=== PATIENT | female | born 1985 | race Caucasian/White ===

== ENCOUNTER → 2016-11-15 | Outpatient (CLI) | payer OTHER ==
[~2016-11-15] MED LIST: PRENTAB26 PO; SERT25TA PO
== END | disposition home or self-care (01) ==
LOC: C.PAPS 15:26
PROVIDERS: ATTEND Obstetrics & Gynecology
DX: Z34.81 Encounter for supervision of other normal pregnancy, first trimester (principal)

== ENCOUNTER → 2016-12-20 | Outpatient (CLI) | payer OTHER ==
[2016-12-20 12:26] LABS: BASO % 0.2 %; BASO ABS # 0.02 K/uL (0-0.2); COMPLETE YES; EOS % 0.4 %; HEMATOCRIT 37.3 % (37-47); IG% 0.8 %; LYMPH % 13.5 %; MEAN CELL VOLUME 90.1 fL (80-100); MEAN CORPUSCULAR HEMOGLOBIN 30.9 pg (25-34); MEAN CORPUSCULAR HGB CONC 34.3 g/dl (32-36); MEAN PLATELET VOLUME 10.1 fL (7.4-10.4); MONO % 5.2 %; NEUT % 79.9 %; PLATELET COUNT 193 K/uL (130-400); RED BLOOD COUNT 4.14 M/uL (4.2-5.4); WHITE BLOOD COUNT 11.15 K/uL (4.8-10.8)
[2016-12-20 13:11] LABS: GTGD 50 Grams
== END | disposition home or self-care (01) ==
LOC: C.LAB 09:19
PROVIDERS: ATTEND Obstetrics & Gynecology
DX: Z34.83 Encounter for supervision of other normal pregnancy, third trimester (principal)

== ENCOUNTER → 2017-01-09 | Outpatient (CLI) | payer OTHER | END | disposition home or self-care (01) | LOC: C.LAB 08:11 | PROVIDERS: ATTEND Obstetrics & Gynecology | DX: Z34.93 Encounter for supervision of normal pregnancy, unspecified, third trimester (principal) ==

== ENCOUNTER → 2017-01-26 | Outpatient (CLI) | payer OTHER | END | disposition home or self-care (01) | LOC: C.LABSPEC 17:19 | PROVIDERS: ATTEND Obstetrics & Gynecology | DX: Z34.83 Encounter for supervision of other normal pregnancy, third trimester (principal) ==

== ENCOUNTER 2017-02-22 08:26 | Inpatient (IN) | payer OTHER ==
[2017-02-13 11:29] VITALS: BMI 32.0
--- NOTE | 2017-02-13 11:53 | PAT Medication Instructions ---
Service Date Feb 13, 2017. Current Home Medication List Multivit/Min/Iron/Fol Ac/Pren ( Vitamin), 1 TAB PO QAM Sertraline (Zoloft), 1 TAB PO DAILY PRN for Anxiety/Agitation Medication Instructions For Your Scheduled Surgery - Hold the following medications the morning of surgery with a sip of water: Multivit/Min/Iron/Fol Ac/Pren ( Vitamin), 1 TAB PO QAM - Take the following medications the morning of surgery with a sip of water: Sertraline (Zoloft), 1 TAB PO DAILY PRN for Anxiety/Agitation (if needed) - Take the following medications as scheduled the night before surgery: Sertraline (Zoloft), 1 TAB PO DAILY PRN for Anxiety/Agitation If you have any questions please call us at [phone] or [phone] or [phone]
[2017-02-13 12:21] LABS: BASO % 0.1 %; BASO ABS # 0.01 K/uL (0-0.2); COMPLETE YES; EOS % 0.6 %; HEMATOCRIT 37.3 % (37-47); IG% 0.6 %; LYMPH % 16.4 %; LYMPH ABS # 1.45 K/uL (1.2-3.4); MEAN CELL VOLUME 89.9 fL (80-100); MEAN CORPUSCULAR HEMOGLOBIN 28.7 pg (25-34); MEAN CORPUSCULAR HGB CONC 31.9 g/dl (32-36); MEAN PLATELET VOLUME 10.6 fL (7.4-10.4); MONO % 7.3 %; PLATELET COUNT 182 K/uL (130-400); RED BLOOD COUNT 4.15 M/uL (4.2-5.4); WHITE BLOOD COUNT 8.85 K/uL (4.8-10.8)
[2017-02-13 12:29] LABS: INR 0.9 (0.9-1.1)
[2017-02-13 13:36] LABS: BUN/CREATININE RATIO 9.1 (10-20); CALCIUM 8.5 mg/dl (8.5-10.1); CREATININE 0.78 mg/dl (0.60-1.20); POTASSIUM 3.5 mmol/L (3.5-5.1)
--- NOTE | 2017-02-17 13:42 | HISTORY & PHYSICAL EXAMINATION ---
DATE OF ADMISSION: 02/22/2017 CHIEF COMPLAINT: Intrauterine at term, previous , macrosomia. HISTORY OF PRESENT ILLNESS: The patient is a 31-year-old 2, para 1, general health is good. She has a history of macrosomia with her first child. First child was born by in 2012, 9 pounds 12 ounce girl. The patient presently requests repeat section. Clinically, the patient has an estimated weight well over 8 pounds and probably close to 10. Her first ultrasound was done late in her course and that gave her an EDC of 02/21/2017. However, she had a definitive last menstrual period of 05/24/2016 which gave her an EDC of 02/28/2017. We are presently using the 02/28/2017 due date due to the history of macrosomia. She will be admitted for repeat low segment section. PAST MEDICAL HISTORY: She is a 2-year-old girl in good health. ALLERGIES: SHE HAS NO KNOWN DRUG ALLERGIES. PAST SURGICAL HISTORY: She had a primary in 2012, she had wisdom teeth removed. MEDICAL HISTORY: No history of rheumatic fever, heart disease, heart murmur, diabetes, tuberculosis. SOCIAL HISTORY: No smoking. No excessive alcohol intake. Works as a housewife. FAMILY HISTORY: Mom is 69 in good health. Father 74, has myelodysplastic dysplasia and he has been treated for Guillain-[place] syndrome. She has 1 brother and 1 sister in good health. REVIEW OF SYSTEMS: HEAD: No symptoms of frequent or severe headaches. EYES: No symptoms of blurred vision or double vision. PHYSICAL EXAMINATION: GENERAL: Well-developed, well-nourished 31-year-old white female, alert, oriented x3 and cooperative in no acute distress, appears stated age. EYES: Conjunctivae are pink, sclerae white, no evidence of jaundice. EARS: Had normal light reflex bilaterally. NOSE: Had normal mucosa. Septum is midline. There were no polyps. THROAT: No erythema or evidence of infection. Teeth are in good state of repair. HEAD: Normocephalic, normal distribution of hair. NECK: Supple. Trachea midline. Thyroid is not enlarged. No adenopathy appreciated. ABDOMEN: Soft and nontender. There was an estimated weight of close to 10 pounds. Well-healed Pfannenstiel incision. PELVIC EXAMINATION: Revealed a vertex presentation, floating. Cervix to be mid position, firm and closed. MUSCULOSKELETAL EXAMINATION: Revealed no calf tenderness. IMPRESSIONS OF THIS CASE: Status post previous for macrosomia, status post removal of wisdom teeth, intrauterine at 39+ weeks' gestation, estimated weight of close to 10 pounds.
[2017-02-22] VITALS (8 sets, daily range): BP systolic 122–134; BP diastolic 81; PULSE 54–59; TEMP 36.7–36.8; O2SAT 98–100; Ht 168.9 cm; Wt 86.7 kg
[~2017-02-22] VITALS: Ht 168.9 cm; Wt 86.7 kg
[~2017-02-22 08:26] MED LIST changes: +CEFOXITIN IV 2,000 MG in DEXTROSE 5% 50ML 50 ML IV SCH; +CEFOXITIN IV 2000 MG in DEXTROSE 5% 50ML IV SCH; +CITRIC ACID/SODIUM CITRATE 15 ML UDC PO SCH; +LACTATED RINGER'S 1000ML 1,000 ML IV SCH
[2017-02-22 09:43] LABS: HEMATOCRIT 39.9 % (37-47); MEAN CELL VOLUME 91.1 fL (80-100); MEAN CORPUSCULAR HEMOGLOBIN 29.7 pg (25-34); MEAN PLATELET VOLUME 11.2 fL (7.4-10.4); PLATELET COUNT 192 K/uL (130-400); RED BLOOD COUNT 4.38 M/uL (4.2-5.4)
[2017-02-22 10:12] LABS: MEAN CORPUSCULAR HGB CONC 32.6 g/dl (32-36)
[2017-02-22] MEDS ORDERED: CITRIC ACID/SODIUM CITRATE 15 ML UDC PO ONE (12:00)
[2017-02-22] MEDS ORDERED: MoRPHine SULFATE PF 1 MG/ML 10 ML AMP/VIAL ONE (12:24)
[2017-02-22] MEDS ORDERED: FENTANYL CITRATE INJ 50 MCG/1 ML 2 ML VIAL ONE (12:25)
[2017-02-22] MEDS ORDERED: OXYTOCIN INJ 10 UNITS/ML VIAL ONE ×2 (12:25→13:18)
[2017-02-22] MEDS ORDERED: PHENYLEPHRINE HCL INJ 10 MG/ML VIAL ONE (12:43)
[2017-02-22] MEDS ORDERED: HYDROCORTISONE ACETATE 25 MG SUPP PR PRN (13:45)
[2017-02-22] MEDS ORDERED: MEPERIDINE HCL 50 MG/ML CARP IV PRN ×2 (13:45)
[2017-02-22] MEDS ORDERED: KETOROLAC TROMETHAMINE 30 MG/ML VIAL IV. PRN (13:45)
[2017-02-22] MEDS ORDERED: ZOLPIDEM TARTRATE 5 MG TAB PO PRN (13:45)
[2017-02-22] MEDS ORDERED: SENNA 8.6 MG TAB PO PRN (13:45)
[2017-02-22] MEDS ORDERED: MAGNESIUM HYDROXIDE SUSP 30 ML UDC PO PRN (13:45)
[2017-02-22] MEDS ORDERED: NALOXONE HCL 0.4 MG/1 ML VIAL/CARP IV PRN (13:45)
[2017-02-22] MEDS ORDERED: LANOLIN OINT EXT PRN ×2 (13:45)
[2017-02-22] MEDS ORDERED: OXYCODONE/ACETAMINOPHEN 5-325 TAB PO PRN (13:45)
[2017-02-22] MEDS ORDERED: DiphenhydrAMINE HCL 50 MG/ML VIAL IV PRN (13:45)
[2017-02-22] MEDS ORDERED: NALOXONE HCL INJ 0.08 MG in SYRINGE 1.8 ML IV PRN (13:45)
[2017-02-22] MEDS ORDERED: DIPHTHERIA/TETANUS/PERTUSSIS 0.5 ML SYR/VIAL IM. ONE (13:45)
[2017-02-22] MEDS ORDERED: SUPERCREAM 0.870 % 15GM JAR EXT PRN (13:45)
[2017-02-22] MEDS ORDERED: EpHEDrine SULFATE INJ 50 MG/ML AMP IV PRN (13:45)
[2017-02-22] MEDS ORDERED: MoRPHine SULFATE PF 1 MG/ML 10 ML AMP/VIAL EPI PRN (13:45)
[2017-02-22] MEDS ORDERED: BENZOCAINE 20% AER SPR 82.5 GM CAN EXT PRN (13:45)
[2017-02-22] MEDS ORDERED: NALBUPHINE HCL INJ 10 MG/ML AMP IV PRN (13:45)
[2017-02-22] MEDS ORDERED: LACTATED RINGER'S 1000ML 500 ML IV PRN (13:45)
[2017-02-22] MEDS ORDERED: MEPERIDINE HCL 25 MG/ML CARP IV PRN (13:45)
[2017-02-22] MEDS ORDERED: MoRPHine SULFATE 2 MG/ML CARP IV PRN (13:45)
[2017-02-22] MEDS ORDERED: ONDANSETRON INJ 2 MG/ML 2 ML VIAL IV PRN ×2 (13:45)
[2017-02-22] MEDS ORDERED: NALOXONE HCL INJ 1 MG in SODIUM CHLORIDE 0.9% 1000ML 1,000 ML IV PRN (13:45)
[2017-02-22] MEDS ORDERED: SODIUM CHLORIDE 0.9% 1000ML 1,000 ML IV PRN (13:45)
[2017-02-22] MEDS ORDERED: NO NARCOTICS OR SEDATIVES SCH (13:45)
--- NOTE | 2017-02-22 14:04 | OPERATIVE REPORT ---
DATE OF OPERATION: 02/22/2017 PROCEDURE: Repeat low segment section. INDICATIONS FOR SURGERY: Intrauterine at term and previous section. PREOPERATIVE DIAGNOSES: Intrauterine at term and macrosomia. POSTOPERATIVE DIAGNOSES: Same, delivered a large male infant. SURGEON: Dr. Ferreira. TAR LEVELER: Dr. Salazar. ESTIMATED BLOOD LOSS: 600 mL. ANESTHESIA: Spinal. OPERATIVE FINDINGS AND PROCEDURE: The patient was brought to the OR table, correctly identified by armband and conversation. Compression stockings were applied. Suprapubic area had been clipped. Morelos catheter had been inserted aseptically into the bladder and connected to gravity drainage. Spinal anesthesia was administered. The patient was positioned on the operating room table. Lower abdomen was painted with an alcohol based sterilizing solution and draped in the usual sterile fashion. Level of the anesthesia was tested and found to be adequate. Pfannenstiel incision was made through a previous scar. Incision was carried down to the anterior fascia by sharp dissection. Hemostasis was secured by electrocauterization. Fascia was incised transversely, from underlying muscle by blunt and sharp dissection. Recti muscles were in the midline exposing peritoneum, which was carefully raised and entered. Position of the head was palpated. An incision was made above the vesicouterine fold about the middle of the head. The bladder was undermined bluntly and pushed out of the operative field. Lower uterine segment was then scored with a knife and entered with a knife. Clear amniotic fluid was seen at this time. The incision was extended laterally with the two fingers. Then, vectis retractor was applied to the head and with fundal pressure, the head was delivered without difficulty. was suctioned through the mouth and the nose. There was a nuchal cord x1, which was reduced over the head. The body was then delivered and the was attended to by the senior ruby developer, Dr. Felipe, who was scrubbed and present at time of delivery. After cutting the cord, cord blood was taken. Placenta was removed manually. Uterus, tubes, and ovaries were brought out through the incision. The myometrial defect was then approximated in layers. The muscular layer was approximated with continuous chromic gut suture. Fascial layer was approximated with a horizontal suture of heavy Vicryl and then we went back over the fascial layer with a Vicryl suture in a continuous fashion to complete the approximation. Following this, hemostasis was excellent. Good approximation was palpated. The peritoneal edges were now restored with a continuous 3-0 chromic. This restored the integrity of the vesicouterine fold. The pelvis was cleansed of all blood clots and debris. Uterus, tubes, and ovaries were reinserted into the abdominal cavity. Careful attention was taken to approximate the anterior abdominal wall. Peritoneum was closed with continuous chromic gut suture. Recti muscles were approximated with interrupted [id number] suture. The fascia was closed with continuous interlocking suture of Vicryl on each side and tied in the midline. SubQ was approximated with continuous plain and skin edges were approximated with staple clips. Following this, the patient tolerated the procedure well and left the OR in good condition. I attest to the content of the Intraoperative Record and any orders documented therein. Any exceptions are noted below. MTDD
[2017-02-22] MEDS: OXYTOCIN INJ 20 UNITS in LACTATED RINGER'S 1000ML 1,000 ML IV SCH ×2 (14:22→23:18)
[2017-02-22 16:38] LABS: HEMATOCRIT 41.8 % (37-47)
--- NOTE | 2017-02-22 16:45 | Anesthesiology Progress Note ---
Anesthesia Post Op Note Date & Time Feb 22, 2017 at 16:38 Notes Mental Status: alert / awake / arousable, participated in evaluation Pt Amnestic to Procedure: Yes Nausea / Vomiting: adequately controlled Pain: adequately controlled Airway Patency, RR, SpO2: stable & adequate BP & HR: stable & adequate, see Notes Hydration State: stable & adequate Neuraxial Anesthesia: was administered, sensory block is resolving Anesthetic Complications: no major complications apparent The patient did well during the C section. She was noted to become tachycardic HR 110s near the end of the procedure but was otherwise comfortable and stable. In recovery she was noted by the nurse to have rapid HR shifts from 55 to 110s on the rhythm strip. A 12 lead EKG was ordered and during the EKG reading she was noted to flip from sinus bradycardia rate 55 to an accelerated junctional rhythm rate 114. Her other vital signs were stable and she was asymptomatic with no palpitations, SOB, or chest pain. I spoke with Dr. Ferreira and reviewed the EKGs with Dr. Greene. [facility] and will check labs as well as monitor the patient on telemetry overnight.
[2017-02-22] MEDS: SIMETHICONE 80 MG CHEW PO SCH ×2 (17:00→21:07)
[2017-02-22 17:04] LABS: BUN/CREATININE RATIO 12.1 (10-20); CALCIUM 8.6 mg/dl (8.5-10.1); CREATININE 0.76 mg/dl (0.60-1.20); MAGNESIUM 1.8 mg/dl (1.8-2.4)
[2017-02-22] MEDS: KETOROLAC TROMETHAMINE 30 MG/ML VIAL IV. PRN (17:26)
[2017-02-22] MEDS: IBUPROFEN 600 MG TAB PO PRN (19:46)
--- NOTE | 2017-02-22 20:48 | Progress Note ---
Progress Note Date of Service Feb 22, 2017. Progress Note Patient was seen and evaluated with ROLANDO Ash. We were consulted on this patient for evaluation for arrhythmias. Patient is status post . Did well during the C section. She was noted to become tachycardic HR 110s near the end of the procedure but was otherwise comfortable and stable per anesthesia note. In recovery she was noted by the nurse to have rapid HR shifts from 55 to 110s on the rhythm strip. A 12 lead EKG was ordered and during the EKG reading she was noted to flip from sinus bradycardia rate 55 to an accelerated junctional rhythm rate 114. Vitals were stable and she was asymptomatic. We were consulted for further evaluation of her bradycardia. EXAM: Gen- AAOX3, no distress Neck- No JVD Lungs- AEBE, no wheezing, rhonchi Heart- Ext- no edema LABS- reviewed, cbc, bmp, mg ASSESSMENT AND PLAN: TACHYCARDIA/BRADYCARDIA : Noted during c section- HR went up to 110s, tachycardia to 55, bradycardia. EKG was ordered- read as accelerated junctional rhythm and thus we were consulted. Asymptomatic, other vitals stable. -No complications during surgery and doing well post operatively. No prior cardiac history. -EKG was repeated- HR of 130s- SVTs ? . Reviewed Monitor - seems like tachycardia , sinus but heart rate does fluctuate from low to high -Will monitor on telemetry overnight -Cardiology consulted S/P C SECTION -Doing well -Stable. Pain under control -Mx per primary team DISPOSITION Overnight telemonitoring and than okay to transfer to construction operations manager floor if doing well
[2017-02-22] MEDS: DOCUSATE SODIUM 100 MG CAP PO SCH (21:07)
--- NOTE | 2017-02-22 21:57 | Medical Consult ---
Consultation Date of Consultation: Feb 22, 2017. Attending Physician: Shine Ferreira M.D. Reason for Consultation: tachycardia History of Present Illness This is a 31 y/o female without significant PMH who presented today for planned today. On admission today her HR was 66 and BP was 134/76. While in the OR, her heart rate was intermittently tachycardic on the monitor. A healthy baby boy was delivered by . EBL was 600 mL. After the procedure her heart rate was 110 and BP was 120s/60s. In dough catcher noted HR fluctuating from 50's to 110's. EKG at 15:23 showed sinus bradycardia rate 55. EKG at 15:25 showed possible accelerated junctional rhythm, rate 114, with prolonged QT (qtc= 532). Currently HR is running 110s-120s and BP is 143/85. Patient denies any lightheadedness, palpitations, chest pain, SOB, abdominal pain (spinal still wearing off), N/V. Patient denies history of cardiac disorder including arrhythmia. No HTN, DM, lung disease. Her sister at bedside reports hx of heart murmur and arrhythmia/ palpitations 15y ago and details are unclear. Denies Fhx of CAD or sudden cardiac . Past Medical/Surgical History Medical Problems: (1) No significant past medical history Status: Chronic Surgical Problems: (1) H/O section Status: Chronic (2) H/O wisdom tooth extraction Status: Chronic Family History FHx: arrhythmia SISTER Heart murmur SISTER Social History Smoking Status: Never Smoker Alcohol Use: none Marital Status: Housing Status: lives with significant other Allergies Coded Allergies: No Known Allergies (Unverified , 02/22/17) Home Medications Active Reported Zoloft (Sertraline HCl) 25 Mg Tab 1 Tab PO DAILY PRN 30 Days Vitamin (Prenat Multivit/[place]/Iron/Folic Ac) Tab 1 Tab PO QAM Current Inpatient Medications Current Inpatient Medications Medications (Trade) Dose Ordered Sig/Shira Route Start Time Stop Time Status Last Admin Dose Admin Cefoxitin Sodium 2000 mg/Dextrose 70 ml @ 100 mls/hr PREOP IV 02/22/17 06:00 02/22/17 18:00 02/22/17 12:28 100 MLS/HR Oxytocin 20 units/ Lactated Ringer's 1,002 ml @ 125 mls/hr Q8H1M IV 02/22/17 14:00 02/23/17 14:02 02/22/17 14:22 125 MLS/HR Ketorolac Tromethamine (Toradol Inj) 30 mg Q6H PRN IV. 02/22/17 13:45 02/27/17 13:44 Future hold Meperidine HCl (Demerol Inj) 50 mg Q4H PRN IV 02/22/17 13:45 03/08/17 13:44 Future hold Meperidine HCl (Demerol Inj) 75 mg Q4H PRN IV 02/22/17 13:45 03/08/17 13:44 Future hold Oxycodone/ Acetaminophen (Percocet 5-325mg Tab) 1 tab Q4H PRN PO 02/22/17 13:45 03/08/17 13:44 Future hold Oxycodone/ Acetaminophen (Percocet 5-325mg Tab) 2 tab Q4H PRN PO 02/22/17 13:45 03/08/17 13:44 Future hold Ibuprofen (Motrin Tab) 600 mg Q4H PRN PO 02/22/17 13:45 03/24/17 13:44 Ondansetron HCl (Zofran Inj) 4 mg Q4H PRN IV 02/22/17 13:45 03/24/17 13:44 Future hold Prenat Multivit/ Moderate Needs Teacher/Iron/Folic Ac ( Vitamin Tab) 1 tab DAILY PO 02/23/17 08:00 03/25/17 07:59 Bisacodyl (Dulcolax Tab) 5 mg HS ONCE PO 02/23/17 22:00 02/23/17 22:01 Bisacodyl (Dulcolax Supp) 10 mg PRN PRN RI 02/24/17 13:45 03/26/17 13:44 Docusate Sodium (coLACE CAP) 100 mg BID PO 02/22/17 20:00 03/24/17 19:59 Magnesium Hydroxide (Milk Of Magnesia Susp) 30 ml HS PRN PO 02/22/17 13:45 03/24/17 13:44 Cocaine HCl (Supercream 0.870% Cr) BID PRN EXT 02/22/17 13:45 03/08/17 13:44 Lanolin (Lanolin Oint) PRN PRN EXT 02/22/17 13:45 03/24/17 13:44 Hydrocortisone Acetate (Anusol Hc Supp) 25 mg BID PRN RI 02/22/17 13:45 03/24/17 13:44 Benzocaine (Dermoplast Aero Spr) 1 appln PRN PRN EXT 02/22/17 13:45 03/24/17 13:44 Zolpidem Tartrate (Ambien Tab) 5 mg HSZ PRN PO 02/22/17 13:45 03/24/17 13:44 Future hold Simethicone (Mylicon Chew Tab) 80 mg QID PO 02/22/17 17:00 03/24/17 16:59 Diphenhydramine HCl (Benadryl Cap) 25 mg QID PRN PO 02/23/17 06:30 03/25/17 06:29 Diphenhydramine HCl (Benadryl Inj) 25 mg QID PRN IV 02/23/17 06:30 03/25/17 06:29 Senna (Senokot Tab) 17.2 mg HS PRN PO 02/22/17 13:45 03/24/17 13:44 Naloxone HCl (Narcan Inj) 0.1 mg UD PRN IV 02/22/17 13:45 02/23/17 06:30 Diphenhydramine HCl (Benadryl Inj) 25 mg Q6H PRN IV 02/22/17 13:45 02/23/17 06:30 Nalbuphine HCl (Nubain Inj) 5 mg Q10M PRN IV 02/22/17 13:45 02/23/17 06:30 Naloxone HCl 1 mg/ Sodium Chloride 1,002.5 ml @ 50 mls/hr Q20H3M PRN IV 02/22/17 13:45 02/23/17 06:30 Ondansetron HCl (Zofran Inj) 4 mg Q6H PRN IV 02/22/17 13:45 02/23/17 06:30 Ketorolac Tromethamine (Toradol Inj) 30 mg Q6H PRN IV. 02/22/17 13:45 02/23/17 06:30 Meperidine HCl (Demerol Inj) 25 mg Q15M PRN IV 02/22/17 13:45 02/23/17 06:30 Miscellaneous Information (Dc Intraspinal Morphine) 1 ea TODAY@0630 N/A 02/23/17 06:30 02/23/17 06:31 Miscellaneous Information (No Narcotics Or Sedatives) 1 ea UD N/A 02/22/17 13:45 02/23/17 06:30 Naloxone HCl 0.08 mg/Syringe 2 ml @ 1 mls/min Q2M PRN IV 02/22/17 13:45 02/23/17 06:30 Morphine Sulfate (MoRPHine SULFATE INJ) 2 mg Q6H PRN IV 02/22/17 13:45 02/23/17 06:30 Lactated Ringer's 500 ml @ 999 mls/hr Q31M PRN IV 02/22/17 13:45 02/23/17 13:44 Ephedrine Sulfate (EpHEDrine SULFATE INJ) 10 mg Q5M PRN IV 02/22/17 13:45 02/23/17 06:30 Morphine Sulfate (Duramorph Pf Inj) TODAY PRN EPI 02/22/17 13:45 02/23/17 06:30 Sodium Chloride 1,000 ml @ 15 mls/hr Q24H PRN IV 02/22/17 13:45 02/23/17 06:30 Review of Systems Ten systems reviewed and negative except as noted in HPI. Physical Exam General Appearance: WD/WN, no apparent distress Head: normocephalic, atraumatic Eyes: normal inspection, PERRL, EOMI ENT: hearing grossly normal Neck: supple, trachea midline Respiratory/Chest: lungs clear, normal breath sounds, no respiratory distress, no accessory muscle use Cardiovascular: no murmur, + tachycardia (regular rhythm, rate 120) Abdomen/GI: normal bowel sounds, non tender, soft, + pertinent finding (s/p section, dressing in place) Extremities/Musculoskelatal: no calf tenderness, no pedal edema Neurologic/Psych: no motor/sensory deficits, normal mood/affect, oriented x 3 Skin: normal color, warm/dry Laboratory Results Last 24 Hours Test 02/22/17 08:51 02/22/17 16:23 02/22/17 16:29 White Blood Count 8.30 K/uL Red Blood Count 4.38 M/uL Hemoglobin 13.0 g/dL Hematocrit 39.9 % Mean Corpuscular Volume 91.1 fL Mean Corpuscular Hemoglobin 29.7 pg Mean Corpuscular Hemoglobin Concent 32.6 g/dl RDW Standard Deviation 50.8 fL RDW Coefficient of Variation 15.2 % Platelet Count 192 K/uL Mean Platelet Volume 11.2 fL Assessment & Plan TACHYCARDIA/BRADYCARDIA During noted to have elevated HR, in recovery had tachycardia in 110s and bradycardia in 50s EKG's showed sinus bradycardia and ? accelerated junctional rhythm- reviewed with floral designer Dr. Muhammad as [place] consult, appreciate input- thought tachycardic rhythm may be junctional vs. sinus, did not feel formal consult was needed Repeat EKG showed possible SVT, HR 131, qtc 475 HR continues to fluctuate Asymptomatic, BP stable, H/H and electrolytes stable; no cardiac hx Monitor in telemetry overnight S/P SECTION POD# 0 Pain is controlled Management per OB DISPOSITION Monitor in telemetry overnight If doing well tomorrow may transfer back to [facility] Patient seen in collaboration with Dr. Monica Luis. Please see her addendum.
[2017-02-23] VITALS (18 sets, daily range): BP systolic 117–136; BP diastolic 77–86; PULSE 56–74; TEMP 36.4–36.9; O2SAT 95–100
[2017-02-23] MEDS: KETOROLAC TROMETHAMINE 30 MG/ML VIAL IV. PRN (06:26)
[2017-02-23] MEDS ORDERED: DC INTRASPINAL MORPHINE SCH (06:30)
[2017-02-23] MEDS ORDERED: DiphenhydrAMINE HCL 50 MG/ML VIAL IV PRN (06:30)
[2017-02-23 06:49] LABS: BASO % 0.1 %; BASO ABS # 0.01 K/uL (0-0.2); COMPLETE YES; EOS % 0.5 %; HEMATOCRIT 35.8 % (37-47); IG% 0.3 %; LYMPH % 11.5 %; LYMPH ABS # 1.01 K/uL (1.2-3.4); MEAN CELL VOLUME 91.1 fL (80-100); MEAN CORPUSCULAR HEMOGLOBIN 29.8 pg (25-34); MEAN CORPUSCULAR HGB CONC 32.7 g/dl (32-36); MEAN PLATELET VOLUME 10.1 fL (7.4-10.4); MONO % 7.4 %; NEUT % 80.2 %; PLATELET COUNT 144 K/uL (130-400); RED BLOOD COUNT 3.93 M/uL (4.2-5.4); WHITE BLOOD COUNT 8.77 K/uL (4.8-10.8)
[2017-02-23] MEDS ORDERED: KETOROLAC TROMETHAMINE 30 MG/ML VIAL ONE (07:07)
[2017-02-23] MEDS: DOCUSATE SODIUM 100 MG CAP PO SCH ×2 (07:49→20:54)
[2017-02-23] MEDS: PRENATAL VITAMIN TAB PO SCH (07:49)
[2017-02-23] MEDS: SIMETHICONE 80 MG CHEW PO SCH ×4 (07:49→20:54)
--- NOTE | 2017-02-23 08:58 | Progress Note ---
Subjective Feb 23, 2017. Subjective conversation w/ patient Ambulation: limited ambulation Voiding: orantes catheter in place Passing Gas: Yes Diet Tolerance: Regular Diet Lochia: Small Feeding Type: Breast Feeding Review of Systems Constitutional: + fever Objective Vital Signs Date Time Temp Pulse Resp B/P (MAP) Pulse Ox O2 Delivery O2 Flow Rate FiO2 02/23/17 07:33 36.8 59 20 117/79 (92) 95 Room Air 02/23/17 07:00 18 99 02/23/17 06:03 20 99 02/23/17 05:06 18 99 02/23/17 04:06 36.7 56 17 125/83 (97) 98 Room Air 02/23/17 04:02 17 99 02/23/17 04:02 Room Air 02/23/17 03:00 18 100 02/23/17 02:00 17 100 02/23/17 01:00 18 98 02/23/17 00:00 18 99 02/23/17 00:00 Room Air 02/22/17 23:56 36.8 59 18 122/81 (95) 100 Room Air 02/22/17 23:00 20 98 02/22/17 22:00 18 100 02/22/17 21:00 18 100 02/22/17 20:00 Room Air 02/22/17 20:00 18 99 02/22/17 19:28 36.7 54 21 134/81 (98) 99 Room Air 02/22/17 19:00 20 100 02/22/17 17:53 18 100 Physical Exam General Appearance: WELL-APPEARING Abdomen: normal bowel sounds, non tender Fundus: Firm, Non-Tender Incision Description: Clean, Dry & Intact Extremities: no pedal edema, no calf tenderness Laboratory Results Last 24 Hours Test 02/22/17 16:23 02/22/17 16:29 02/23/17 06:36 Sodium Level 139 mmol/L Potassium Level 4.0 mmol/L Chloride Level 105 mmol/L Carbon Dioxide Level 26 mmol/L Anion Gap 8.0 mmol/L Blood Urea Nitrogen 9 mg/dl Creatinine 0.76 mg/dl Est Creatinine Clear Calc Drug Dose 120.8 ml/min Estimated GFR () 119.5 Estimated GFR (Non- 103.1 BUN/Creatinine Ratio 12.1 Random Glucose 73 mg/dl Calcium Level 8.6 mg/dl Magnesium Level 1.8 mg/dl Hemoglobin 13.4 g/dL 11.7 g/dL Hematocrit 41.8 % 35.8 % White Blood Count 8.77 K/uL Red Blood Count 3.93 M/uL Mean Corpuscular Volume 91.1 fL Mean Corpuscular Hemoglobin 29.8 pg Mean Corpuscular Hemoglobin Concent 32.7 g/dl Platelet Count 144 K/uL Mean Platelet Volume 10.1 fL Neutrophils (%) (Auto) 80.2 % Lymphocytes (%) (Auto) 11.5 % Monocytes (%) (Auto) 7.4 % Eosinophils (%) (Auto) 0.5 % Basophils (%) (Auto) 0.1 % Neutrophils # (Auto) 7.03 K/uL Lymphocytes # (Auto) 1.01 K/uL Monocytes # (Auto) 0.65 K/uL Eosinophils # (Auto) 0.04 K/uL Basophils # (Auto) 0.01 K/uL RDW Standard Deviation 51.6 fL RDW Coefficient of Variation 15.4 % Immature Granulocyte % (Auto) 0.3 % Immature Granulocyte # (Auto) 0.03 K/uL Assessment and Plan Post-Op Day#: 1
--- NOTE | 2017-02-23 10:57 | CARDIOLOGY CONSULTATION ---
DATE OF CONSULTATION: 02/23/2017 DATE OF CONSULTATION: 02/23/2017. CONSULTATION REQUESTED BY: Dr. Luis. REASON FOR CONSULTATION: Tachycardia, status post childbirth. HISTORY OF PRESENT ILLNESS: Ms. Barr is a very pleasant 31-year-old woman who presented to [facility] on 02/22/2017 for planned . The patient had an uncomplicated and felt well during the with no symptoms. However, anesthesia noticed tachycardia on telemetry during the delivery. The baby was delivered without complication. The patient had no complaints whatsoever. A EKG was performed which was interpreted as an accelerated junctional rhythm and the patient was transferred to telemetry. Overnight, the patient remained completely without complaint and remained in sinus rhythm in the 70s and 80s on monitor. Currently, she is resting in bed with her son who is in good health and again she remains completely without complaint. PAST SURGICAL HISTORY: 1. Prior . 2. [place] tooth extraction. MEDICAL ILLNESSES: Denies. FAMILY HISTORY: Noncontributory. SOCIAL HISTORY: The patient is a former smoker, quit before the . Denies any alcohol or recreational drug use. She has a 4-year-old daughter who is also in good health. REVIEW OF SYSTEMS: As per HPI, all other review of systems reviewed and negative at this time. ALLERGIES: No known drug allergies. MEDICATIONS AN OUTPATIENT: Denies. LABORATORY STUDIES: A 12-lead EKG performed on 02/22/2017 at 1504 independently reviewed at this time shows sinus bradycardia with underlying sinus arrhythmia, normal study. Repeat EKG at 15:37 independently reviewed at this time shows an accelerated junctional rhythm. Telemetry monitoring overnight shows normal sinus rhythm with no arrhythmias. IMPRESSION: Benign tachycardia in the setting of childbirth. RECOMMENDATIONS: It was my pleasure to see Ms. Barr in consultation today. The patient and her significant other were counseled that exhilarated junctional rhythm is a benign arrhythmia and not unexpected in the setting of childbirth, so no further cardiac testing or intervention is necessary at this time. Obviously no medications will be started. A 2D echocardiogram was already ordered and can be performed; however, no murmurs were present on examination. No cardiac followup is necessary. The patient is to be transferred back to [facility] immediately.
--- NOTE | 2017-02-23 12:50 | Progress Note ---
Medicine Progress Note Date & Time of Visit: Feb 23, 2017 at 12:40. Subjective 31 yo female who gave via to a healthy baby boy yesterday found to have a possible SVT post-operatively yesterday. She was transferred to telemetry for monitoring overnight. -some post-op pain present -pt denies palpitaitons, chest pain, SOB, lightheadedness -tolerating PO Objective Last 8 Hrs Date Time Temp Pulse Resp B/P (MAP) Pulse Ox O2 Delivery O2 Flow Rate FiO2 02/23/17 10:00 18 98 02/23/17 09:00 17 99 02/23/17 08:00 16 98 02/23/17 08:00 Room Air 02/23/17 07:33 36.8 59 20 117/79 (92) 95 Room Air 02/23/17 07:00 18 99 02/23/17 06:03 20 99 02/23/17 05:06 18 99 Physical Exam: GEN: WNWD, in no acute distress, alert and appropriate HEENT: NC/AT, normal sclerae, MMM CARDIO: reg rate, S1/2 heard without m/g/r LUNGS: CTA bilaterally, no crackles, rales or wheezes, good diaphragmatic excursion ABD: soft, TTP around incision site that is covered with a gauze-c/d/i, non- distended, no rebound or guarding, +BS EXTREMITY: RP and DP palpable 2+ bilat, no LE swelling or edema, extremities are warm and well-perfused NEURO: CN 2-12 intact, no gross focal deficits. MUSC: moves all extremities equally, well-developed musculature. SKIN: warm and dry and incision as above. Laboratory Results: 02/23/17 06:36 Red Blood Count 3.93, Mean Corpuscular Volume 91.1, Mean Corpuscular Hemoglobin 29.8, Mean Corpuscular Hemoglobin Concent 32.7, Mean Platelet Volume 10.1, Neutrophils (%) (Auto) 80.2, Lymphocytes (%) (Auto) 11.5, Monocytes (%) (Auto) 7.4, Eosinophils (%) (Auto) 0.5, Basophils (%) (Auto) 0.1, Neutrophils # (Auto) 7.03, Lymphocytes # (Auto) 1.01, Monocytes # (Auto) 0.65, Eosinophils # (Auto) 0.04, Basophils # (Auto) 0.01 02/22/17 16:23 Test 02/13/17 11:59 02/22/17 16:23 02/23/17 06:36 Prothrombin Time 10.0 SECONDS (9.0-12.0) Prothromb Time International Ratio 0.9 (0.9-1.1) Activated Partial Thromboplast Time 27.0 SECONDS (21.0-31.0) Partial Thromboplastin Ratio 1.0 Anion Gap 8.0 mmol/L (3-11) Est Creatinine Clear Calc Drug Dose 120.8 ml/min Estimated GFR () 119.5 Estimated GFR (Non- 103.1 BUN/Creatinine Ratio 12.1 (10-20) Calcium Level 8.6 mg/dl (8.5-10.1) Magnesium Level 1.8 mg/dl (1.8-2.4) White Blood Count 8.77 K/uL (4.8-10.8) Red Blood Count 3.93 M/uL (4.2-5.4) Hemoglobin 11.7 g/dL (12.0-16.0) Hematocrit 35.8 % (37-47) Mean Corpuscular Volume 91.1 fL (80-100) Mean Corpuscular Hemoglobin 29.8 pg (25-34) Mean Corpuscular Hemoglobin Concent 32.7 g/dl (32-36) Platelet Count 144 K/uL (130-400) Mean Platelet Volume 10.1 fL (7.4-10.4) Neutrophils (%) (Auto) 80.2 % Lymphocytes (%) (Auto) 11.5 % Monocytes (%) (Auto) 7.4 % Eosinophils (%) (Auto) 0.5 % Basophils (%) (Auto) 0.1 % Neutrophils # (Auto) 7.03 K/uL (1.4-6.5) Lymphocytes # (Auto) 1.01 K/uL (1.2-3.4) Monocytes # (Auto) 0.65 K/uL (0.11-0.59) Eosinophils # (Auto) 0.04 K/uL (0-0.5) Basophils # (Auto) 0.01 K/uL (0-0.2) RDW Standard Deviation 51.6 fL (36.4-46.3) RDW Coefficient of Variation 15.4 % (11.5-14.5) Immature Granulocyte % (Auto) 0.3 % Immature Granulocyte # (Auto) 0.03 K/uL (0.00-0.02) Last 24 Hours Test 02/22/17 16:23 02/22/17 16:29 02/23/17 06:36 Sodium Level 139 mmol/L Potassium Level 4.0 mmol/L Chloride Level 105 mmol/L Carbon Dioxide Level 26 mmol/L Anion Gap 8.0 mmol/L Blood Urea Nitrogen 9 mg/dl Creatinine 0.76 mg/dl Est Creatinine Clear Calc Drug Dose 120.8 ml/min Estimated GFR () 119.5 Estimated GFR (Non- 103.1 BUN/Creatinine Ratio 12.1 Random Glucose 73 mg/dl Calcium Level 8.6 mg/dl Magnesium Level 1.8 mg/dl Hemoglobin 13.4 g/dL 11.7 g/dL Hematocrit 41.8 % 35.8 % White Blood Count 8.77 K/uL Red Blood Count 3.93 M/uL Mean Corpuscular Volume 91.1 fL Mean Corpuscular Hemoglobin 29.8 pg Mean Corpuscular Hemoglobin Concent 32.7 g/dl Platelet Count 144 K/uL Mean Platelet Volume 10.1 fL Neutrophils (%) (Auto) 80.2 % Lymphocytes (%) (Auto) 11.5 % Monocytes (%) (Auto) 7.4 % Eosinophils (%) (Auto) 0.5 % Basophils (%) (Auto) 0.1 % Neutrophils # (Auto) 7.03 K/uL Lymphocytes # (Auto) 1.01 K/uL Monocytes # (Auto) 0.65 K/uL Eosinophils # (Auto) 0.04 K/uL Basophils # (Auto) 0.01 K/uL RDW Standard Deviation 51.6 fL RDW Coefficient of Variation 15.4 % Immature Granulocyte % (Auto) 0.3 % Immature Granulocyte # (Auto) 0.03 K/uL Assessment & Plan 31 yo female who gave via to a healthy baby boy yesterday found to have a possible SVT post-operatively yesterday. She was transferred to telemetry for monitoring overnight. 1. Arrythmia-likely related to the stress of childbirth, anesthesia and operation itself. Common in this situation 2/2 hormonal and autonomic changes related to this process. Will ensure no structural heart disease is present with an TTE. No events on telemetry overnight and she is asymptomatic today with SB on EKG this morning. It is more important that she be with her baby at this time, than being monitored on this floor away from him. She is very stable and will be moved back to the [facility] while awaiting her TTE. Per Cardiology, no further cardiac testing is necessary. 2. Post-op state-followed by OBGYN, doing well. Some pain present. Percocet ordered PRN. Pt states that she is not . DISPOSITION: back to [facility]. OK to go home from Medicine standpoint once TTE results return normal. Thank you for this consult. Elizabeth Glover DO [facility] Hospitalist Current Inpatient Medications: Current Inpatient Medications Medications (Trade) Dose Ordered Sig/Shira Route Start Time Stop Time Status Last Admin Dose Admin Oxytocin 20 units/ Lactated Ringer's 1,002 ml @ 125 mls/hr Q8H1M IV 02/22/17 14:00 02/23/17 14:02 02/22/17 23:18 125 MLS/HR Ketorolac Tromethamine (Toradol Inj) 30 mg Q6H PRN IV. 02/22/17 13:45 02/27/17 13:44 Future hold Meperidine HCl (Demerol Inj) 50 mg Q4H PRN IV 02/22/17 13:45 03/08/17 13:44 Future hold Meperidine HCl (Demerol Inj) 75 mg Q4H PRN IV 02/22/17 13:45 03/08/17 13:44 Future hold Oxycodone/ Acetaminophen (Percocet 5-325mg Tab) 1 tab Q4H PRN PO 02/22/17 13:45 03/08/17 13:44 Future hold Oxycodone/ Acetaminophen (Percocet 5-325mg Tab) 2 tab Q4H PRN PO 02/22/17 13:45 03/08/17 13:44 Future hold 02/23/17 10:14 2 TAB Ibuprofen (Motrin Tab) 600 mg Q4H PRN PO 02/22/17 13:45 03/24/17 13:44 02/22/17 19:46 600 MG Ondansetron HCl (Zofran Inj) 4 mg Q4H PRN IV 02/22/17 13:45 03/24/17 13:44 Future hold Prenat Multivit/ Center/Iron/Folic Ac ( Vitamin Tab) 1 tab DAILY PO 02/23/17 08:00 03/25/17 07:59 02/23/17 07:49 1 TAB Bisacodyl (Dulcolax Tab) 5 mg HS ONCE PO 02/23/17 21:00 02/23/17 22:01 Bisacodyl (Dulcolax Supp) 10 mg PRN PRN NJ 02/24/17 13:45 03/26/17 13:44 Docusate Sodium (coLACE CAP) 100 mg BID PO 02/22/17 20:00 03/24/17 19:59 02/23/17 07:49 100 MG Magnesium Hydroxide (Milk Of Magnesia Susp) 30 ml HS PRN PO 02/22/17 13:45 03/24/17 13:44 Cocaine HCl (Supercream 0.870% Cr) BID PRN EXT 02/22/17 13:45 03/08/17 13:44 Lanolin (Lanolin Oint) PRN PRN EXT 02/22/17 13:45 03/24/17 13:44 Hydrocortisone Acetate (Anusol Hc Supp) 25 mg BID PRN NJ 02/22/17 13:45 03/24/17 13:44 Benzocaine (Dermoplast Aero Spr) 1 appln PRN PRN EXT 02/22/17 13:45 03/24/17 13:44 Zolpidem Tartrate (Ambien Tab) 5 mg HSZ PRN PO 02/22/17 13:45 03/24/17 13:44 Future hold Simethicone (Mylicon Chew Tab) 80 mg QID PO 02/22/17 17:00 03/24/17 16:59 02/23/17 07:49 80 MG Diphenhydramine HCl (Benadryl Cap) 25 mg QID PRN PO 02/23/17 06:30 03/25/17 06:29 Diphenhydramine HCl (Benadryl Inj) 25 mg QID PRN IV 02/23/17 06:30 03/25/17 06:29 Senna (Senokot Tab) 17.2 mg HS PRN PO 02/22/17 13:45 03/24/17 13:44 Lactated Ringer's 500 ml @ 999 mls/hr Q31M PRN IV 02/22/17 13:45 02/23/17 13:44
--- NOTE | 2017-02-23 13:16 | ECHOCARDIOGRAM REPORT ---
*NOTICE TO RECEIVING [employer] This information is strictly Confidential and protected under [place] law. [place] law prohibits you from making any further disclosure of this information unless further disclosure is expressly permitted by the written consent of the person to whom it pertains or is authorized by law. A general authorization for the release of medical or other information is not sufficient for this purpose. Hospital accepts no responsibility if the information is made available to any other person, INCLUDING THE PATIENT. Interpretation Summary * Name: BAILEY REYNOLDS Study Date: 02/23/2017 11:01 AM BP: 117/79 mmHg * Patient Location: .2T\S\S233\S\1 HR: 59 * : 1985 (M/d/yyyy) Gender: Female Height: 66 in * Age: 31 yrs Ethnicity: [place] Weight: 191 lb * Ordering Physician: Elizabeth Glover * Referring Physician: Shnie Ferreira * Performed By: Jemma Whitley RDCS * * Reason For Study: SVT * BSA: 2.0 m2 * -- Conclusions -- * The left ventricle is normal in size. * There is normal left ventricular wall thickness. * Left ventricular systolic function is normal. * The left ventricular wall motion is normal. * Ejection Fraction = 65-70%. * There is mild nonspecific thickening of the mitral valve lealflets. * There is mild mitral regurgitation. * There is trace tricuspid regurgitation. * Normal inferior vena cava diameter and respiratory variation suggests normal central venous pressure. Procedure Details * A complete two-dimensional transthoracic echocardiogram was performed (2D, M-mode, Doppler and color flow Doppler). Left Ventricle * The left ventricle is normal in size. * There is normal left ventricular wall thickness. * Ejection Fraction = 65-70%. * Left ventricular systolic function is normal. * The left ventricular wall motion is normal. Right Ventricle * The right ventricle is normal in size and function. Atria * The left atrial size is normal. * Right atrial size is normal. * No ASD detected; PFO is not assessed. Mitral Valve * There is mild nonspecific thickening of the mitral valve lealflets. * There is no mitral valve stenosis. * There is mild mitral regurgitation. Tricuspid Valve * The tricuspid valve anatomy is normal. * There is no tricuspid stenosis. * There is trace tricuspid regurgitation. * Doppler findings do not suggest pulmonary hypertension. Aortic Valve * The aortic valve is trileaflet. * No hemodynamically significant valvular aortic stenosis. * No aortic regurgitation is present. Pulmonic Valve * The pulmonic valve is not well visualized. Great Vessels * The aortic root is normal size. Pericardium/Pleural * There is no pericardial effusion. Great Vessels * Normal inferior vena cava diameter and respiratory variation suggests normal central venous pressure. MMode 2D Measurements and Calculations IVSd 0.95 cm LVIDd 5.0 cm LVIDs 3.2 cm LVPWd 0.96 cm IVS/LVPW 0.99 FS 35.4 % EDV(Teich) 119.3 ml ESV(Teich) 42.2 ml EF(Teich) 64.6 % EDV(cubed) 126.4 ml ESV(cubed) 34.0 ml EF(cubed) 73.1 % LV mass(C)d 171.2 grams LV mass(C)dI 87.3 grams/m\S\2 SV(Teich) 77.1 ml SI(Teich) 39.3 ml/m\S\2 SV(cubed) 92.4 ml SI(cubed) 47.1 ml/m\S\2 Ao root diam 3.2 cm Ao root area 7.8 cm\S\2 ACS 1.8 cm LA dimension 3.2 cm asc Aorta Diam 2.8 cm LA/Ao 1.0 LVOT diam 2.0 cm LVOT area 3.1 cm\S\2 LVAd ap4 28.6 cm\S\2 LVLd ap4 8.4 cm EDV(MOD-sp4) 78.4 ml EDV(sp4-el) 82.5 ml LVAs ap4 14.4 cm\S\2 LVLs ap4 6.7 cm ESV(MOD-sp4) 25.9 ml ESV(sp4-el) 26.4 ml EF(MOD-sp4) 67.0 % EF(sp4-el) 68.1 % LVAd ap2 26.4 cm\S\2 LVLd ap2 7.7 cm EDV(MOD-sp2) 79.5 ml EDV(sp2-el) 77.2 ml LVAs ap2 14.5 cm\S\2 LVLs ap2 6.4 cm ESV(MOD-sp2) 27.7 ml ESV(sp2-el) 28.0 ml EF(MOD-sp2) 65.2 % EF(sp2-el) 63.8 % LVLd %diff -9.71 % EDV(MOD-bp) 82.5 ml LVLs %diff -3.86 % ESV(MOD-bp) 27.2 ml EF(MOD-bp) 67.1 % SV(MOD-sp4) 52.5 ml SI(MOD-sp4) 26.8 ml/m\S\2 SV(MOD-sp2) 51.8 ml SI(MOD-sp2) 26.4 ml/m\S\2 SV(MOD-bp) 55.3 ml SI(MOD-bp) 28.2 ml/m\S\2 SV(sp4-el) 56.2 ml SI(sp4-el) 28.6 ml/m\S\2 SV(sp2-el) 49.3 ml SI(sp2-el) 25.1 ml/m\S\2 Doppler Measurements and Calculations MV E max negrita 124.2 cm/sec MV A max negrita 65.5 cm/sec MV E/A 1.9 MV dec time 0.11 sec Ao V2 max 147.7 cm/sec Ao max PG 8.7 mmHg Ao max PG (full) 1.7 mmHg PATRICIA(V,A) 2.8 cm\S\2 PATRICIA(V,D) 2.8 cm\S\2 LV V1 max PG 7.1 mmHg LV V1 max 132.9 cm/sec MR max negrita 477.0 cm/sec MR max PG 91.0 mmHg MR mean negrita 393.5 cm/sec MR mean PG 68.1 mmHg MR VTI 173.9 cm PA V2 max 101.8 cm/sec PA max PG 4.1 mmHg PA acc slope 442.1 cm/sec\S\2 PA acc time 0.15 sec PI end-d negrita 104.5 cm/sec PA pr(Accel) 10.9 mmHg
[2017-02-23] MEDS: OXYCODONE/ACETAMINOPHEN 5-325 TAB PO PRN ×3 (14:07→23:05)
[2017-02-23] MEDS: IBUPROFEN 600 MG TAB PO PRN ×3 (14:07→23:05)
[2017-02-23] MEDS ORDERED: BISACODYL 5 MG TABEC PO ONE (21:00)
[2017-02-24 04:30] VITALS: BP 131/86; PULSE 64; TEMP 36.8; O2SAT 98
[2017-02-24] MEDS: OXYCODONE/ACETAMINOPHEN 5-325 TAB PO PRN ×3 (06:04→14:35)
[2017-02-24] MEDS: IBUPROFEN 600 MG TAB PO PRN ×3 (06:04→14:34)
[2017-02-24 07:31] VITALS: BP 124/80; PULSE 56; TEMP 36.8; O2SAT 100
[2017-02-24] MEDS: SIMETHICONE 80 MG CHEW PO SCH (09:22)
[2017-02-24] MEDS: PRENATAL VITAMIN TAB PO SCH (09:22)
[2017-02-24] MEDS: DOCUSATE SODIUM 100 MG CAP PO SCH (09:22)
--- NOTE | 2017-02-24 09:53 | Cardiology Follow-Up ---
Subjective Subjective Date of Service: Feb 24, 2017. Pt evaluation today including: conversation w/ patient, conversation w/ family , physical exam, chart review, lab review, review of studies, review of inpatient medication list Problem List Pt seen and examined, states that she feels well. Denies cp, sob, palpitations, lightheadedness or dizziness. Review of Systems Respiratory: No see HPI, No cough, No sputum, No wheezing, No shortness of breath, No dyspnea on exertion, No dyspnea at rest, No hemoptysis, No problem reported Cardiac: No see HPI, No chest pain, No orthopnea, No PND, No edema, No claudication, No palpitations, No problem reported Objective Vital Signs Last Vital Signs Documentation Date Time Temp Pulse Resp B/P (MAP) Pulse Ox O2 Delivery O2 Flow Rate FiO2 02/24/17 07:31 36.8 56 16 124/80 (95) 100 Room Air Physical Exam: General Appearance: WD/WN, no apparent distress Eyes: bilateral eyes normal inspection, bilateral eyes PERRL, bilateral eyes EOMI ENT: normal ENT inspection, hearing grossly normal, pharynx normal Neck: supple, no adenopathy, thyroid normal, no JVD, no carotid bruits, trachea midline Respiratory/Chest: chest non-tender, lungs clear, normal breath sounds, no respiratory distress, no accessory muscle use Cardiovascular: regular rate, rhythm, no edema, no gallop, no JVD, no murmur Abdomen: normal bowel sounds Extremities: normal inspection, no pedal edema, no calf tenderness Neurologic/Psychiatric: surfboard maker II-XII nml as tested, no motor/sensory deficits, alert, normal mood/affect, oriented x 3 Skin: normal color, warm/dry, no rash Lymphatic: no adenopathy Assessment and Plan 1. junctional tachycardia immediately post-op benign finding no significant structural abnormality by echo mild thickening of mitral valve leaflet, likely normal change no meds no cardiac f/u necessary will sign off, please call with questions or concerns
--- NOTE | 2017-02-24 12:30 | Progress Note ---
Subjective Feb 24, 2017. Subjective conversation w/ patient Ambulation: ambulating normally Voiding: no voiding problems, orantes catheter in place Passing Gas: Yes Diet Tolerance: Regular Diet Lochia: Small Feeding Type: Breast Feeding Review of Systems Constitutional: + fever Objective Vital Signs Date Time Temp Pulse Resp B/P (MAP) Pulse Ox O2 Delivery O2 Flow Rate FiO2 02/24/17 07:31 36.8 56 16 124/80 (95) 100 Room Air 02/24/17 07:30 Room Air 02/24/17 04:30 36.8 64 18 131/86 (101) 98 Room Air 02/23/17 23:05 36.4 59 18 119/77 (91) 100 Room Air 02/23/17 23:05 100 Room Air 02/23/17 19:15 36.9 74 20 136/86 (103) 98 Room Air 02/23/17 16:15 36.5 56 18 130/86 (101) 98 Room Air 02/23/17 16:15 98 Room Air 02/23/17 13:00 36.8 59 18 98 02/23/17 12:50 98 Room Air 02/23/17 12:50 36.6 71 18 125/80 (95) 98 Room Air Physical Exam General Appearance: WELL-APPEARING Respiratory/Chest: lungs clear Abdomen: non tender Fundus: Firm, Non-Tender Incision Description: Clean, Dry & Intact Extremities: no pedal edema, no calf tenderness Assessment and Plan Post-Op Day#: 2
--- NOTE | 2017-02-24 12:32 | Discharge Instructions ---
Discharge Instructions Date of Service Feb 24, 2017. Admission Reason for Admission: Term , Previous Section Discharge Discharge Diagnosis / Problem: macrosomia term Discharge Goals Goal(s): Routine recovery after Activity Recommendations Activity Limitations: as noted below ACTIVITY RECOMMENDATIONS: * Gradual return to full activity over the next 2-3 weeks. * No lifting - nothing heavier than baby over the next 2-3 weeks. * Do not engage in vigorous exercise, sexual activity or sports for 6 weeks. * Do not drive or operate any motorized equipment for 14 days. * You may shower/bathe daily. DIET: Resume Previous Diet If Breast-feeding: * Increase caloric intake by 500 calories, eat 3 well balanced meals, 2 high protein snacks a day and drink 6-8 8oz. glasses of fluid per day. BREAST CARE: If you are not breast feeding: * Wear a supportive bra 24 hours a day for one to two weeks. * Avoid stimulating your breasts and nipples as much as possible during the first few weeks after delivery. * When taking a shower, have the warm water hit your back, not breasts. * When your breasts feel full, apply ice packs. Usually three to four times a day helps ease the discomfort. * Take a mild pain medication (Tylenol / Motrin) when you are uncomfortable. If breast feeding: * Use breast milk to lubricate nipples. Lansinoh cream may be used for sore nipples. You do not need to remove cream prior to breast feeding. If using a different brand of cream, check the label for directions regarding removal of cream prior to nursing. * Wear a supportive bra. * If having problems with breasts or breast feeding, call a sediment remediation consultant or your health care provider. VITAMINS: * One tablet daily. Continue taking while or until you have your check up in 6 weeks. SPECIAL CARE INSTRUCTIONS: * Vaginal rest (no tampons, douching, intercourse) until after doctor's visit. * control as discussed with doctor. * Verbalizes understanding of car seat law as reviewed with patient by nursing. * Car Seat hand-out given and reviewed with patient by nursing. * Shaken baby information reviewed with patient by nursing. Call you doctor if: * Heavy bleeding (saturating a pad an hour) or passing clots the size of your fist. Bleeding has a foul smelling odor. * A fever greater than 100.4 degrees F (38 degrees C) on two occasions four hours apart and/or chills. * Unusual pain in the pelvic or vaginal areas. Pain should improve each day . * Call the doctor for any increased redness, drainage or swelling around the incision and any pain unrelieved by prescribed pain medication. * Signs and symptoms of phlebitis(possible blood clots forming in the veins): leg pain, warm, red or swollen area on leg. * "Baby Blues" lasting longer than two weeks. If you have any questions or concerns, call your health care practitioner at [phone]. FOLLOW-UP VISIT: Follow-up visit for examination in 6 weeks. Incision check (staple removal) in 1 week. Please call office at [phone] if not already scheduled. . Instructions / Follow-Up Instructions / Follow-Up ACTIVITY RECOMMENDATIONS: * Gradual return to full activity over the next 2-3 weeks. * No lifting - nothing heavier than baby over the next 2-3 weeks. * Do not engage in vigorous exercise, sexual activity or sports for 6 weeks. * Do not drive or operate any motorized equipment for 14 days. * You may shower/bathe daily. DIET: Resume Previous Diet If Breast-feeding: * Increase caloric intake by 500 calories, eat 3 well balanced meals, 2 high protein snacks a day and drink 6-8 8oz. glasses of fluid per day. BREAST CARE: If you are not breast feeding: * Wear a supportive bra 24 hours a day for one to two weeks. * Avoid stimulating your breasts and nipples as much as possible during the first few weeks after delivery. * When taking a shower, have the warm water hit your back, not breasts. * When your breasts feel full, apply ice packs. Usually three to four times a day helps ease the discomfort. * Take a mild pain medication (Tylenol / Motrin) when you are uncomfortable. If breast feeding: * Use breast milk to lubricate nipples. Lansinoh cream may be used for sore nipples. You do not need to remove cream prior to breast feeding. If using a different brand of cream, check the label for directions regarding removal of cream prior to nursing. * Wear a supportive bra. * If having problems with breasts or breast feeding, call a sediment remediation consultant or your health care provider. VITAMINS: * One tablet daily. Continue taking while or until you have your check up in 6 weeks. SPECIAL CARE INSTRUCTIONS: * Vaginal rest (no tampons, douching, intercourse) until after doctor's visit. * control as discussed with doctor. * Verbalizes understanding of car seat law as reviewed with patient by nursing. * Car Seat hand-out given and reviewed with patient by nursing. * Shaken baby information reviewed with patient by nursing. Call you doctor if: * Heavy bleeding (saturating a pad an hour) or passing clots the size of your fist. Bleeding has a foul smelling odor. * A fever greater than 100.4 degrees F (38 degrees C) on two occasions four hours apart and/or chills. * Unusual pain in the pelvic or vaginal areas. Pain should improve each day . * Call the doctor for any increased redness, drainage or swelling around the incision and any pain unrelieved by prescribed pain medication. * Signs and symptoms of phlebitis(possible blood clots forming in the veins): leg pain, warm, red or swollen area on leg. * "Baby Blues" lasting longer than two weeks. If you have any questions or concerns, call your health care practitioner at [phone]. FOLLOW-UP VISIT: Follow-up visit for examination in 6 weeks. Incision check (staple removal) in 1 week. Please call office at [phone] if not already scheduled. Current Hospital Diet Patient's current hospital diet: Regular OB Diet Discharge Diet Recommended Diet: Regular Diet Procedures Procedures Performed: DELIVERY OF LIVE MALE INFANT AT 1300 Pending Studies Studies pending at discharge: no Medical Emergencies . Who to Call and When: Medical Emergencies: If at any time you feel your situation is an emergency, please call 911 immediately. . Non-Emergent Contact Non-Emergency issues call your: Director Of Integrated Marketing Call Non-Emergent contact if: temperature is above 100.5 . . "Provider Documentation" section prepared by Shine Ferreira. . VTE Core Measure Inpt VTE Proph given/why not?: Treatment not indicated
--- NOTE | 2017-02-24 13:31 | DISCHARGE SUMMARY ---
Mrs. Barr is a 1, para 1, who was a late entry for care. Her first office visit was at about 27 weeks. She had a history of having a for macrosomia. She was dated with a late ultrasound; however, she did have a good last menstrual period. We used the last menstrual period, which gave her due date of about early in February. She is rubella immune. Blood type is O positive. She was brought in using the LMD date as her due date, which put her due later than her ultrasound. On the day of admission, she was taken to the OR, where she underwent repeat low segment section after being given prophylactic antibiotics. She did well. Blood loss at that time was minimum. Her preoperative hemoglobin was 11.9 and hematocrit 37.3. Postoperatively, hemoglobin was 11.7 and hematocrit 35.8. First day postop, she began to have some cardiac arrhythmias along with some episodes of low blood pressure and was seen by the hospitalist and placed on a nurse monitoring floor. Eventually, the hospitalist consulted the cardiac physician and after about 24 hours of monitoring, she was transferred back to the regular floor. At the time of discharge, since her second postoperative day, she is off the nurse monitoring and she was doing well. Pain is well controlled with a combination of Percocet and Motrin. Incision was clean and dry. Bleeding was minimal. The patient requests discharge. She is going to be discharged on Percocet and Motrin prescriptions and the usual postoperative instructions to call if she had a temperature of over 100 or any heavy bleeding. Any followup from the hospitalist or cardiac physician will be handled by them.
[2017-02-24] MEDS ORDERED: BISACODYL 10 MG SUPP PR PRN (13:45)
[2017-02-24 14:22] VITALS: BP 124/80; PULSE 56; TEMP 36.8; O2SAT 100
--- NOTE | 2017-02-24 16:27 | Progress Note ---
Medicine Progress Note Date & Time of Visit: Feb 24, 2017 at 1000. Subjective 31 yo female who gave via to a healthy baby boy on 02/22 found to have a possible SVT post-operatively. Was monitored on telemetry overnight with no events, remained in sinus rhythm, asymptomatic with a normal heart rate afterwards. Echo was reviewed with patient and is within normal limits for -post-op pain controlled -denies palpitations, chest pain or shortness of breath -HD stable. Objective Last 8 Hrs Date Time Temp Pulse Resp B/P (MAP) Pulse Ox O2 Delivery O2 Flow Rate FiO2 02/24/17 14:22 36.8 56 16 100 Room Air Physical Exam: GEN: WNWD, in no acute distress, alert and appropriate HEENT: NC/AT, normal sclerae, MMM CARDIO: reg rate, S1/2 heard without m/g/r LUNGS: CTA bilaterally, no crackles, rales or wheezes, good diaphragmatic excursion ABD: soft, TTP around incision site that is covered with a gauze-c/d/i, non- distended, no rebound or guarding, +BS EXTREMITY: RP and DP palpable 2+ bilat, no LE swelling or edema, extremities are warm and well-perfused NEURO: CN 2-12 intact, no gross focal deficits. MUSC: moves all extremities equally, well-developed musculature. SKIN: warm and dry and incision as above. Laboratory Results: 02/23/17 06:36 Red Blood Count 3.93, Mean Corpuscular Volume 91.1, Mean Corpuscular Hemoglobin 29.8, Mean Corpuscular Hemoglobin Concent 32.7, Mean Platelet Volume 10.1, Neutrophils (%) (Auto) 80.2, Lymphocytes (%) (Auto) 11.5, Monocytes (%) (Auto) 7.4, Eosinophils (%) (Auto) 0.5, Basophils (%) (Auto) 0.1, Neutrophils # (Auto) 7.03, Lymphocytes # (Auto) 1.01, Monocytes # (Auto) 0.65, Eosinophils # (Auto) 0.04, Basophils # (Auto) 0.01 02/22/17 16:23 Test 02/13/17 11:59 02/22/17 16:23 02/23/17 06:36 Prothrombin Time 10.0 SECONDS (9.0-12.0) Prothromb Time International Ratio 0.9 (0.9-1.1) Activated Partial Thromboplast Time 27.0 SECONDS (21.0-31.0) Partial Thromboplastin Ratio 1.0 Anion Gap 8.0 mmol/L (3-11) Est Creatinine Clear Calc Drug Dose 120.8 ml/min Estimated GFR () 119.5 Estimated GFR (Non- 103.1 BUN/Creatinine Ratio 12.1 (10-20) Calcium Level 8.6 mg/dl (8.5-10.1) Magnesium Level 1.8 mg/dl (1.8-2.4) White Blood Count 8.77 K/uL (4.8-10.8) Red Blood Count 3.93 M/uL (4.2-5.4) Hemoglobin 11.7 g/dL (12.0-16.0) Hematocrit 35.8 % (37-47) Mean Corpuscular Volume 91.1 fL (80-100) Mean Corpuscular Hemoglobin 29.8 pg (25-34) Mean Corpuscular Hemoglobin Concent 32.7 g/dl (32-36) Platelet Count 144 K/uL (130-400) Mean Platelet Volume 10.1 fL (7.4-10.4) Neutrophils (%) (Auto) 80.2 % Lymphocytes (%) (Auto) 11.5 % Monocytes (%) (Auto) 7.4 % Eosinophils (%) (Auto) 0.5 % Basophils (%) (Auto) 0.1 % Neutrophils # (Auto) 7.03 K/uL (1.4-6.5) Lymphocytes # (Auto) 1.01 K/uL (1.2-3.4) Monocytes # (Auto) 0.65 K/uL (0.11-0.59) Eosinophils # (Auto) 0.04 K/uL (0-0.5) Basophils # (Auto) 0.01 K/uL (0-0.2) RDW Standard Deviation 51.6 fL (36.4-46.3) RDW Coefficient of Variation 15.4 % (11.5-14.5) Immature Granulocyte % (Auto) 0.3 % Immature Granulocyte # (Auto) 0.03 K/uL (0.00-0.02) Assessment & Plan 31 yo female who gave via to a healthy baby boy on 02/22 found to have a possible SVT post-operatively. Was monitored on telemetry overnight with no events, remained in sinus rhythm, asymptomatic with a normal heart rate afterwards. Echo was reviewed with patient and is within normal limits for 1. Arrythmia-likely related to the stress of childbirth, anesthesia and operation itself. Common in this situation 2/2 hormonal and autonomic changes related to this process. TTE reviewed with patient and normal in . Cardiology also reviewed with patient. No further cardiac testing or follow-up necessary. 2. Post-op state-followed by OBGYN, doing well. Some pain present. Percocet ordered PRN. Pt states that she is not . DISPOSITION: OK to go home from Medicine standpoint Thank you for this consult. Elizabeth Glover DO [facility] Hospitalist
== END 2017-02-24 15:06 | disposition home or self-care (01) | DRG 765 ==
LOC: C.LD 08:26 → EDSTATUS 09:00 → ENRESERV 16:46 → C.2T 18:00 → ENRESERV 02-23 12:07 → C.MS4N 02-23 13:06
PROVIDERS: ADMIT Obstetrics & Gynecology; ATTEND Obstetrics & Gynecology
PROC: 10D00Z1 Extraction of Products of Conception, Low, Open Approach (ICD-10-PCS; principal; 2017-02-22 10:30)
DX: O36.63X0 Maternal care for excessive fetal growth, third trimester, not applicable or unspecified (principal); O99.42 Diseases of the circulatory system complicating childbirth; I47.1 Supraventricular tachycardia; O34.211 Maternal care for low transverse scar from previous cesarean delivery; N85.8 Other specified noninflammatory disorders of uterus; R00.1 Bradycardia, unspecified; O69.81X0 Labor and delivery complicated by cord around neck, without compression, not applicable or unspecified; O99.344 Other mental disorders complicating childbirth; F32.9 Major depressive disorder, single episode, unspecified; O99.214 Obesity complicating childbirth; Z68.32 Body mass index [BMI] 32.0-32.9, adult; Z37.0 Single live birth; Z3A.40 40 weeks gestation of pregnancy; Z79.899 Other long term (current) drug therapy; Z87.891 Personal history of nicotine dependence

== ENCOUNTER → 2017-04-07 | Outpatient (CLI) | payer OTHER ==
[~2017-04-07] MED LIST changes: -CEFOXITIN IV 2,000 MG in DEXTROSE 5% 50ML 50 ML IV SCH; -CEFOXITIN IV 2000 MG in DEXTROSE 5% 50ML IV SCH; -CITRIC ACID/SODIUM CITRATE 15 ML UDC PO SCH; -LACTATED RINGER'S 1000ML 1,000 ML IV SCH
== END | disposition home or self-care (01) ==
LOC: C.PAPS 15:08
PROVIDERS: ATTEND Obstetrics & Gynecology
DX: Z39.2 Encounter for routine postpartum follow-up (principal); R87.619 Unspecified abnormal cytological findings in specimens from cervix uteri

== ENCOUNTER → 2017-10-23 | Outpatient (CLI) | payer OTHER | END | disposition home or self-care (01) | LOC: C.LABSPEC 14:11 | PROVIDERS: ATTEND Obstetrics & Gynecology | DX: Z34.81 Encounter for supervision of other normal pregnancy, first trimester (principal) ==

== ENCOUNTER → 2017-10-31 | Outpatient (CLI) | payer OTHER ==
[2017-10-31 10:18] LABS: BASO % 0.2 %; BASO ABS # 0.02 K/uL (0-0.2); EOS % 0.5 %; EOS ABS # 0.05 K/uL (0-0.5); HEMATOCRIT 37.5 % (37-47); HEMOGLOBIN 12.6 g/dL (12.0-16.0); IG# 0.05 K/uL (0.00-0.02); LYMPH % 14.6 %; MEAN CELL VOLUME 89.3 fL (80-100); MEAN CORPUSCULAR HGB CONC 33.6 g/dl (32-36); MEAN PLATELET VOLUME 9.6 fL (7.4-10.4); MONO % 4.6 %; MONO ABS # 0.44 K/uL (0.11-0.59); NEUT % 79.6 %; NEUT ABS # 7.63 K/uL (1.4-6.5); PLATELET COUNT 198 K/uL (130-400); RED CELL DISTRIBUTION WIDTH CV 14.1 % (11.5-14.5); RED CELL DISTRIBUTION WIDTH SD 46.3 fL (36.4-46.3); WHITE BLOOD COUNT 9.59 K/uL (4.8-10.8)
== END | disposition home or self-care (01) ==
LOC: C.LAB 08:33
PROVIDERS: ATTEND Obstetrics & Gynecology
DX: Z34.82 Encounter for supervision of other normal pregnancy, second trimester (principal); Z3A.00 Weeks of gestation of pregnancy not specified

== ENCOUNTER → 2018-02-16 | Outpatient (CLI) | payer OTHER ==
[~2018-02-16] MED LIST changes: +LABE100T3 PO
[2018-02-16 11:57] LABS: BASO % 0.3 %; BASO ABS # 0.02 K/uL (0-0.2); EOS % 0.7 %; EOS ABS # 0.05 K/uL (0-0.5); HEMATOCRIT 36.8 % (37-47); HEMOGLOBIN 11.7 g/dL (12.0-16.0); IG# 0.04 K/uL (0.00-0.02); LYMPH % 18.6 %; LYMPH ABS # 1.42 K/uL (1.2-3.4); MEAN CORPUSCULAR HGB CONC 31.8 g/dl (32-36); MEAN PLATELET VOLUME 10.4 fL (7.4-10.4); MONO ABS # 0.76 K/uL (0.11-0.59); NEUT % 69.9 %; NEUT ABS # 5.34 K/uL (1.4-6.5); PLATELET COUNT 196 K/uL (130-400); RED CELL DISTRIBUTION WIDTH CV 17.5 % (11.5-14.5); RED CELL DISTRIBUTION WIDTH SD 55.4 fL (36.4-46.3); WHITE BLOOD COUNT 7.63 K/uL (4.8-10.8)
[2018-02-16 12:05] LABS: BLOOD UREA NITROGEN 7 mg/dl (7-18); CALCIUM 8.2 mg/dl (8.5-10.1); CARBON DIOXIDE 23 mmol/L (21-32); CREATININE 0.65 mg/dl (0.60-1.20); GLUCOSE 83 mg/dl (70-99); INR 0.9 (0.9-1.1); POTASSIUM 3.9 mmol/L (3.5-5.1); PTT PATIENT 26.5 SECONDS (21.0-31.0); SODIUM 138 mmol/L (136-145)
== END | disposition home or self-care (01) ==
LOC: C.LAB 10:49
PROVIDERS: ATTEND Obstetrics & Gynecology
DX: Z01.812 Encounter for preprocedural laboratory examination (principal)

== ENCOUNTER 2018-02-26 07:16 | Inpatient (IN) | payer OTHER ==
--- NOTE | 2018-02-16 11:17 | PAT Medication Instructions ---
Service Date Feb 16, 2018. Current Home Medication List Labetalol Hcl (Labetalol Hcl), 100 MG PO TID Multivit/Min/Iron/Fol Ac/Pren ( Vitamin), 1 TAB PO QAM Medication Instructions For Your Scheduled Surgery - Hold the following medications the morning of surgery: Multivit/Min/Iron/Fol Ac/Pren ( Vitamin), 1 TAB PO QAM - Take the following medications the morning of surgery with a sip of water: Labetalol Hcl (Labetalol Hcl), 100 MG PO TID - Take the following medications as scheduled the night before surgery: Labetalol Hcl (Labetalol Hcl), 100 MG PO TID If you have any questions please call us at [phone] or [phone] or [phone]
[2018-02-16 11:40] VITALS: BMI 33.0
[2018-02-26] VITALS (13 sets, daily range): BP systolic 105–128; BP diastolic 57–95; PULSE 55–73; TEMP 36.8; O2SAT 96–100; Ht 172.7 cm; Wt 93.7 kg
[~2018-02-26] VITALS: Ht 172.7 cm; Wt 93.7 kg
[~2018-02-26 07:16] MED LIST changes: +CEFOXITIN IV 2000 MG in DEXTROSE 5% 50ML IV SCH; +CITRIC ACID/SODIUM CITRATE 15 ML UDC PO SCH; +LACTATED RINGER'S 1000ML 1,000 ML IV SCH; -SERT25TA PO
[2018-02-26] MEDS ORDERED: ACETAMINOPHEN 1000 MG/100 ML IV IV ONE (07:30)
[2018-02-26] MEDS ORDERED: ATROPINE SULFATE 0.1 MG/ML 5ML SYR IV PRN (07:30)
[2018-02-26] MEDS ORDERED: PROMETHAZINE HCL INJ 12.5 MG in SODIUM CHLORIDE 0.9% 50ML 50 ML IV PRN (07:30)
[2018-02-26] MEDS ORDERED: ONDANSETRON INJ 2 MG/ML 2 ML VIAL IV PRN (07:30)
[2018-02-26] MEDS ORDERED: PHENYLEPHRINE 100MCG/ML 5ML SYR IV PRN (07:30)
[2018-02-26] MEDS ORDERED: EpHEDrine SULFATE INJ 50 MG/ML AMP IV PRN ×2 (07:30→14:30)
[2018-02-26] MEDS ORDERED: FENTANYL CITRATE INJ 50 MCG/1 ML 2 ML VIAL ONE (08:12)
[2018-02-26] MEDS ORDERED: MoRPHine SULFATE PF 1 MG/ML 10 ML AMP/VIAL ONE (08:12)
[2018-02-26] MEDS ORDERED: OXYTOCIN INJ 10 UNITS/ML VIAL ONE (08:12)
[2018-02-26] MEDS ORDERED: PHENYLEPHRINE HCL INJ 10 MG/ML VIAL ONE (08:37)
[2018-02-26] MEDS ORDERED: EpHEDrine SULFATE INJ 50 MG/ML AMP ONE (08:37)
[2018-02-26] MEDS ORDERED: LACTATED RINGER'S 1000ML 1,000 ML IV SCH (09:23)
--- NOTE | 2018-02-26 09:27 | History & Physical Bridge Note ---
H&P Re-Evaluation Bridge Note: I have examined the patient, reviewed the History & Physical and in the interval since the performance of the History & Physical I have noted the following changes of clinical significance: No changes noted
[2018-02-26] MEDS ORDERED: CITRIC ACID/SODIUM CITRATE 15 ML UDC PO ONE (09:30)
[2018-02-26 09:38] LABS: BASO % 0.2 %; BASO ABS # 0.02 K/uL (0-0.2); EOS % 0.4 %; EOS ABS # 0.04 K/uL (0-0.5); HEMOGLOBIN 11.3 g/dL (12.0-16.0); IG# 0.06 K/uL (0.00-0.02); LYMPH ABS # 1.15 K/uL (1.2-3.4); MEAN CELL VOLUME 87.6 fL (80-100); MEAN CORPUSCULAR HEMOGLOBIN 27.5 pg (25-34); MEAN CORPUSCULAR HGB CONC 31.4 g/dl (32-36); MEAN PLATELET VOLUME 9.9 fL (7.4-10.4); MONO % 7.9 %; MONO ABS # 0.76 K/uL (0.11-0.59); NEUT % 78.9 %; NEUT ABS # 7.56 K/uL (1.4-6.5); PLATELET COUNT 179 K/uL (130-400); RED CELL DISTRIBUTION WIDTH SD 54.4 fL (36.4-46.3); WHITE BLOOD COUNT 9.59 K/uL (4.8-10.8)
[2018-02-26] MEDS: LACTATED RINGER'S 1000ML 1,000 ML IV SCH ×2 (09:45→17:45)
[2018-02-26 09:46] LABS: PTT PATIENT 26.1 SECONDS (21.0-31.0)
[2018-02-26 09:59] LABS: CALCIUM 8.2 mg/dl (8.5-10.1); CREATININE 0.62 mg/dl (0.60-1.20); POTASSIUM 3.7 mmol/L (3.5-5.1)
[2018-02-26] MEDS ORDERED: CEFOXITIN IV 2,000 MG in DEXTROSE 5% 50ML 50 ML IV SCH (10:00)
[2018-02-26] MEDS ORDERED: OXYTOCIN INJ 10 UNITS/ML VIAL IM ONE (10:50)
[2018-02-26] MEDS ORDERED: EpINEphrine INJ 1MG/ML AMP 1 MG/ML AMP ONE (11:17)
--- NOTE | 2018-02-26 11:45 | [facility] Post Operative Brief Note ---
Immediate Operative Summary Operative Date Feb 26, 2018. Pre-Operative Diagnosis Term intrauterine . Desires repeat section and permanent sterilization. Post-Operative Diagnosis Same with of live male infant at 1038. Procedure(s) Performed 1. Repeat low transverse section. 2. Bilateral tubal ligation. Surgeon Dr. Ferreira Loss Prevention And Safety Manager Surgeon(s) Sabina Lai RN Estimated Blood Loss 600 Findings Consistent with Post-Op Diagnosis Fluids (cc crystalloids) 1200 ml Specimens A. Placenta - hold B. Cord blood C. Portion R fallopian tube D. Portion L fallopian tube Drains None Anesthesia Type Spinal Complication(s) none Disposition Accompanied Pt To Recover: no Disposition: Surgical ICU Overlapping Procedure I was immediately available: during the entire case
[2018-02-26] MEDS ORDERED: SUPERCREAM 0.870 % 15GM JAR EXT PRN (12:00)
[2018-02-26] MEDS ORDERED: SENNA 8.6 MG TAB PO PRN (12:00)
[2018-02-26] MEDS ORDERED: BENZOCAINE 20% AER SPR 82.5 GM CAN EXT PRN (12:00)
[2018-02-26] MEDS ORDERED: LANOLIN OINT EXT PRN (12:00)
[2018-02-26] MEDS ORDERED: MAGNESIUM HYDROXIDE SUSP 30 ML UDC PO PRN (12:00)
[2018-02-26] MEDS ORDERED: HYDROCORTISONE ACETATE 25 MG SUPP PR PRN (12:00)
[2018-02-26] MEDS ORDERED: DIPHTHERIA/TETANUS/PERTUSSIS 0.5 ML SYR/VIAL IM. ONE (12:00)
[2018-02-26] MEDS: OXYTOCIN INJ 20 UNITS in LACTATED RINGER'S 1000ML 1,000 ML IV SCH ×2 (12:13→20:13)
--- NOTE | 2018-02-26 12:41 | OPERATIVE REPORT ---
DATE OF OPERATION: 02/26/2018 This is an operative notation of a repeat low segment section and a bilateral tubal ligation. INDICATIONS FOR SURGERY: Two previous C-sections, suspected macrosomia. PREOPERATIVE DIAGNOSES: Intrauterine , 39+ weeks gestation, suspected macrosomia, desire for permanent sterilization. POSTOPERATIVE DIAGNOSIS: Delivered live 10 pound 6 ounce male. SURGEON: Clement Ferreira M.D. PROCEDURE: Repeat low segment section, bilateral partial salpingectomy. ESTIMATED BLOOD LOSS: 600 mL ANESTHESIA: Spinal. OPERATIVE FINDINGS AND PROCEDURE: The patient was brought to the OR table, correctly identified by armband and conversation. Spinal anesthesia was administered. Compression stockings were applied. A catheter was inserted aseptically in the bladder connected to gravity drainage. Lower uterine segment and abdomen were painted with an alcohol-based sterilizing solution. We waited 3 minutes and then draped in usual sterile fashion. We tested the level of anesthesia, it was adequate, started out by excising a low Pfannenstiel scar, then cauterizing the bleeders for hemostasis, taking the dissection down to the fascia, then incising the fascia laterally on each side, then dissecting the fascia away from the rectus muscle up towards the umbilicus and down to the pelvic bone. Following this, we the rectus muscle, entered the peritoneum, exposed the lower uterine segment, used the bladder blade. It was noted that the lower uterine segment was fairly thin. I cut the peritoneum, advanced the bladder out of the operative field, scored the lower uterine segment and entered with the scissors. Amniotic fluid was seen coming through the incision. Incision was then widened laterally. A vectis retractor was applied to the head and then with a lot of fundal pressure, we squeezed the infant through the incision, then squeezed the shoulders through, then suctioned him through the mouth and the nose, cut the cord and handed off him to the custom shoemaker, Dr. Caldwell who was present and scrubbed at the time of delivery. Cord blood was taken. The placenta was removed manually. It was sent to the lab. Uterus, tubes, and ovaries were brought out through the incision. Uterine cavity was wiped clean with a clean sponge. Ten units of Pitocin was injected into the uterus. We approximated the lower uterine segment in two layers, first a heavy duty chromic was used to approximate the muscular layer and control hemostasis. Then, I covered this approximation over with a fascial suture of heavy duty Vicryl and I used about three [id number] sutures of heavy duty Vicryl along the incision line to complete the hemostasis. Following this, hemostasis was excellent. Peritoneal edges restored with a running 3-0 chromic. We then turned our attention to doing the tubal. The tube was grasped in the midportion and ligated proximally and distally with a plain tie, then the leaves of the broad ligament was injected with local with epinephrine, they were . The tube was brought out through the incision, cut and sent for pathological evaluation. The leaves of the broad ligament were approximated front to back burying the proximal stump of the tube and exteriorizing the distal stump. This was done for both the right and left side. Hemostasis was excellent. We then turned uterus sideways and had a work to squeeze it back in through the incision, inspected everything, hemostasis was good. Before we put the uterus back in the abdomen, we cleansed the pelvis of all blood clots and debris. We now did a careful anatomical approximation of the anterior abdominal wall. Peritoneum was closed with a mattress suture of chromic catgut. Recti muscles were approximated with interrupted [id number] suture of chromic catgut. The fascia was closed with continuous interlocking suture of Vicryl on each side, tied in the midline, and incision was then cleansed with sterile saline solution. A plain tie was used to approximate the subQ layer. Then, the skin edges were approximated with staple clips. The patient tolerated the procedure well and left the OR in good condition. I attest to the content of the Intraoperative Record and any orders documented therein. Any exception s are noted below.
[2018-02-26] MEDS: SIMETHICONE 80 MG CHEW PO SCH ×3 (13:00→20:25)
[2018-02-26] MEDS ORDERED: NALOXONE HCL INJ 1 MG in SODIUM CHLORIDE 0.9% 1000ML 1,000 ML IV PRN ×4 (14:24)
[2018-02-26] MEDS ORDERED: LACTATED RINGER'S 1000ML 500 ML IV PRN (14:24)
[2018-02-26] MEDS ORDERED: SODIUM CHLORIDE 0.9% 1000ML 1,000 ML IV PRN (14:24)
[2018-02-26] MEDS ORDERED: NALOXONE HCL INJ 0.08 MG in SYRINGE 1.8 ML IV PRN (14:24)
[2018-02-26] MEDS ORDERED: MoRPHine SULFATE PF 1 MG/ML 10 ML AMP/VIAL EPI PRN (14:30)
[2018-02-26] MEDS ORDERED: NO NARCOTICS OR SEDATIVES SCH (14:30)
[2018-02-26] MEDS ORDERED: NALBUPHINE HCL INJ 10 MG/ML 1ML AMP IV PRN (14:30)
[2018-02-26] MEDS ORDERED: PROMETHAZINE HCL INJ 25 MG in SODIUM CHLORIDE 0.9% 50ML 50 ML IV PRN (14:30)
[2018-02-26] MEDS ORDERED: NALOXONE HCL 0.4 MG/1 ML VIAL/CARP IV PRN (14:30)
[2018-02-26] MEDS ORDERED: DiphenhydrAMINE HCL 50 MG/ML VIAL IV PRN (14:30)
[2018-02-26] MEDS ORDERED: KETOROLAC TROMETHAMINE 30 MG/ML VIAL IV. PRN (14:30)
[2018-02-26] MEDS ORDERED: MEPERIDINE HCL 25 MG/ML CARP IV PRN (14:30)
--- NOTE | 2018-02-26 14:33 | Anesthesiology Progress Note ---
Anesthesia Post Op Note Date & Time Feb 26, 2018 at 14:30 Vital Signs Vital Signs Past 12 Hours Date Time Temp Pulse Resp B/P (MAP) Pulse Ox O2 Delivery O2 Flow Rate FiO2 02/26/18 13:13 55 16 122/79 (93) 98 Room Air Notes Mental Status: alert / awake / arousable, participated in evaluation Pt Amnestic to Procedure: Yes Nausea / Vomiting: adequately controlled Pain: adequately controlled Airway Patency, RR, SpO2: stable & adequate BP & HR: stable & adequate Hydration State: stable & adequate Neuraxial Anesthesia: was administered, sensory block is resolving Anesthetic Complications: no major complications apparent Pt doing well. Pt with h/o of accelerated junctional rhythm s/p her csection last year. Validation Scientist was consulted then and LIBORIO was done. Per airplane tube builder, rhythm was benign and no intervention needed done. Pt has similar rhythm again intermittently throughout intraop and postop. 12 lead EKG done post op. Discussed case with Dr. Ferreira, and decision made to monitor patient overnight in the telemetry unit. Pt denies having any SOB, CP, dizziness. BP stable throughout. Discussion made with patient as well as her and they agreed with plan.
[2018-02-26] MEDS: KETOROLAC TROMETHAMINE 30 MG/ML VIAL IV. PRN (15:01)
--- NOTE | 2018-02-26 15:38 | Cardiology Consultation ---
Cardiology Consultation Date of Consultation: Feb 26, 2018 History of Present Illness Mariana Barr is a 32-year-old female seen in cardiology consultation per the request of Dr. Lindsey Lezama of anesthesia for the evaluation of tachycardia noted during and post section today. Mrs. Barr underwent repeat section as well as bilateral partial salpingectomy today at 39 weeks gestation, delivering a baby boy, Rui. During the procedure, anesthesia noted episodes of regular R to R interval narrow complex tachycardia in the range of 120-130 bpm with spontaneous conversion back to sinus rhythm in the range of 50 bpm for the most part, sometimes her sinus bradycardia was as low as the high 30 B per minute range but this is been rare. She recovered from the section and was transferred to the telemetry floor, room 207 where she is now. At present she is sitting up in bed. She is accompanied by her spouse and extended family. She notes feeling well with the exception of mild postoperative abdominal discomfort. Denies any chest discomfort or shortness of breath. An EKG performed today at 12:11 PM captured the tachycardia well with what I feel is an accelerated junctional rhythm with transition to sinus bradycardia. Patient reports in the last 3 weeks of she had been diagnosed with hypertension and she had been on labetalol. This is her third and third delivery all of which have been by section. Of note, she was followed by cardiology having developed a similar tachycardia episode after her previous a year ago in January,. Past Medical/Surgical History Problem List: Medical Problems: (1) Macrosomia (2) No significant past medical history (3) Term (4) related HTN Surgical Problems: (1) H/O section (2) H/O wisdom tooth extraction (3) Status post repeat low transverse section History Past Surgical History: section 2 in the past Social History: Remote former smoker Family History: Family history of coronary heart disease in her grandmother and great aunt. Review Of Systems 10 point review of systems is reviewed and is negative with exception of that noted above Allergies Coded Allergies: No Known Allergies (Unverified , 02/22/17) Medications Reported Home Medications Medications Dose Route/Sig Max Daily Dose Days Date Category Labetalol Hcl 100 Mg Tab 100 Mg PO TID 02/16/18 Reported Vitamin (Prenat Multivit/Oxford/Iron/Folic Ac) Tab 1 Tab PO QAM 02/13/17 Reported Physical Exam Vital Signs (Last 8hrs): Last 8 Hrs Date Time Temp Pulse Resp B/P (MAP) Pulse Ox O2 Delivery O2 Flow Rate FiO2 02/26/18 15:00 66 16 107/78 (88) 98 Room Air 02/26/18 14:30 55 14 125/72 (89) 97 Room Air 02/26/18 14:00 55 14 111/95 (100) 97 Room Air 02/26/18 13:30 73 16 128/95 (106) 98 Room Air 02/26/18 13:13 55 16 122/79 (93) 98 Room Air General Appearance: Alert and Oriented x3. NAD. Head: Normocephalic Atraumatic. Eyes: PERRLA, EOMI, conjunctiva and sclera clear Neck: Supple. No carotid bruits noted. No JVD. No HJD. Respiratory: Breath sounds clear to auscultation bilaterally. No w/r/r. Cardiovascular: Reg rate and rhythm. S1 and S2 noted. No murmurs, rubs, gallops. PMI non displace. Abdomen: Post gravid abdomen, abdominal exam not performed Extremities: No edema, no clubbing or cyanosis. distal pulses 2/4 bilaterally. Neuro: No focal deficits. Psychiatric: Normal affect. Data Last Resulted 02/26/18 09:23 Red Blood Count 4.11, Mean Corpuscular Volume 87.6, Mean Corpuscular Hemoglobin 27.5, Mean Corpuscular Hemoglobin Concent 31.4, Mean Platelet Volume 9.9, Neutrophils (%) (Auto) 78.9, Lymphocytes (%) (Auto) 12.0, Monocytes (%) (Auto) 7.9, Eosinophils (%) (Auto) 0.4, Basophils (%) (Auto) 0.2, Neutrophils # (Auto) 7.56, Lymphocytes # (Auto) 1.15, Monocytes # (Auto) 0.76, Eosinophils # (Auto) 0.04, Basophils # (Auto) 0.02 Last Resulted 02/26/18 09:23 Past 24 Hours Test 02/26/18 09:23 Range/Units Prothromb Time International Ratio 1.0 0.9-1.1 Prothrombin Time 10.0 9.0-12.0 SECONDS EKG as outlined above Assessment & Plan Impression: 32-year-old female seen in room 207, telemetry, several hours post section performed today. section was performed due to suspected macrosomia and history of prior . During the section and now in the post procedure recovery interval, the patient has had intermittent narrow complex tachycardia in the range of 120 bpm consistent with accelerated junctional rhythm and spontaneous conversion to sinus bradycardia. The patient does feel her heart rate go up, but if she is not symptomatically. Discussion/recommendations: The patient had a similar intermittent tachycardia captured on EKG a year ago post . Is likely due to high vagal tone. She does not have cardiac symptoms otherwise prior to her recently during her . She has been on labetalol for -induced hypertension which is now been discontinued. Her blood pressures performed on a serial basis this afternoon have been stable ranging from 111/95-128/95. She had an echocardiogram during her hospital stay year ago under similar circumstances with no evidence of structural heart disease. At this time, recommend ongoing monitoring on telemetry. Her electrolytes performed earlier today were stable. Will proceed with an echocardiogram tomorrow for completeness to rule out -induced cardiomyopathy. At present, the patient appears to be recovering as expected from section, with no cardiac complaints.
[2018-02-26] MEDS: MoRPHine SULFATE 2 MG/ML CARP IV PRN ×2 (16:15→22:44)
[2018-02-26] MEDS: DOCUSATE SODIUM 100 MG CAP PO SCH (20:25)
[2018-02-26] MEDS: IBUPROFEN 600 MG TAB PO PRN (22:44)
[2018-02-27] VITALS (10 sets, daily range): BP systolic 108–122; BP diastolic 61–82; PULSE 58–76; TEMP 36.4–36.8; O2SAT 96–98
[2018-02-27] MEDS: LACTATED RINGER'S 1000ML 1,000 ML IV SCH ×2 (01:45→09:45)
[2018-02-27] MEDS ORDERED: ZOLPIDEM TARTRATE 5 MG TAB PO PRN (04:15)
[2018-02-27] MEDS ORDERED: DiphenhydrAMINE HCL 50 MG/ML VIAL IV PRN (04:15)
[2018-02-27] MEDS ORDERED: ONDANSETRON INJ 2 MG/ML 2 ML VIAL IV PRN (04:15)
[2018-02-27] MEDS ORDERED: DC INTRASPINAL MORPHINE SCH (04:15)
[2018-02-27] MEDS ORDERED: MEPERIDINE HCL 50 MG/ML CARP IV PRN ×2 (04:15)
[2018-02-27] MEDS: OXYTOCIN INJ 20 UNITS in LACTATED RINGER'S 1000ML 1,000 ML IV SCH (04:17)
[2018-02-27] MEDS: OXYCODONE/ACETAMINOPHEN 5-325 TAB PO PRN ×5 (05:23→22:09)
[2018-02-27 06:07] LABS: BASO % 0.1 %; BASO ABS # 0.01 K/uL (0-0.2); EOS % 0.7 %; EOS ABS # 0.06 K/uL (0-0.5); HEMATOCRIT 33.9 % (37-47); HEMOGLOBIN 10.6 g/dL (12.0-16.0); IG# 0.04 K/uL (0.00-0.02); LYMPH % 13.3 %; MEAN CELL VOLUME 88.3 fL (80-100); MEAN CORPUSCULAR HEMOGLOBIN 27.6 pg (25-34); MEAN CORPUSCULAR HGB CONC 31.3 g/dl (32-36); MEAN PLATELET VOLUME 10.3 fL (7.4-10.4); MONO % 7.5 %; MONO ABS # 0.62 K/uL (0.11-0.59); NEUT % 77.9 %; NEUT ABS # 6.41 K/uL (1.4-6.5); PLATELET COUNT 158 K/uL (130-400); RED CELL DISTRIBUTION WIDTH CV 17.3 % (11.5-14.5); RED CELL DISTRIBUTION WIDTH SD 55.8 fL (36.4-46.3); WHITE BLOOD COUNT 8.24 K/uL (4.8-10.8)
[2018-02-27] MEDS: SIMETHICONE 80 MG CHEW PO SCH ×3 (07:53→20:21)
[2018-02-27] MEDS: KETOROLAC TROMETHAMINE 30 MG/ML VIAL IV. PRN (07:53)
[2018-02-27] MEDS: IBUPROFEN 600 MG TAB PO PRN ×3 (07:53→22:09)
[2018-02-27] MEDS: DOCUSATE SODIUM 100 MG CAP PO SCH ×2 (07:54→20:21)
[2018-02-27] MEDS: FERROUS SULFATE 325 MG TAB PO SCH (07:54)
[2018-02-27] MEDS: PRENATAL VITAMIN TAB PO SCH (07:54)
--- NOTE | 2018-02-27 08:36 | Cardiology Progress Note ---
Cardiology Progress Note Date of Service Feb 27, 2018. Cardiology Progress Note TRANSTHORACIC ECHOCARDIOGRAM , PRELIMINARY REPORT: Name: BAILEY REYNOLDS Study Date: 02/27/2018 06:30 AM BP: 122/82 mmHg [place] [facility] [id number] HR: 58 : 1985 (M/d/yyyy) Gender: Female Height: 68 in Age: 32 yrs Ethnicity: [place] Weight: 188 lb Ordering Physician: Efrem Chirinos Referring Physician: Shine Ferreira Performed By: Sabina Long [facility] Reason For Study: TACHYCARDIA / PERIPARTUM BSA: 2.0 m2. SUMMARY: The study was technically adequate for the referral indication. Sinus rhythm at 60 bpm was present during the echocardiogram. There is normal left ventricular wall thickness. The left ventricular wall motion is normal. Left ventricular systolic function is normal. The LV Ejection Fraction = 60-65%. The LV diastolic function is normal. There is no significant valvualar heart disease. There is mild mitral regurgitation. There is trace tricuspid regurgitation. Procedure Details A complete two-dimensional transthoracic echocardiogram was performed (2D, M- mode, Doppler and color flow Doppler). Left Ventricle The left ventricle is normal in size. There is normal left ventricular wall thickness. Left ventricular systolic function is normal. Ejection Fraction = 60-65%. The left ventricular wall motion is normal. Right Ventricle The right ventricle is normal in size and function. The right ventricular systolic function is normal as assessed by tricuspid annular plane systolic excursion (TAPSE) (normal >1.5 cm). Atria The left atrial size is normal. Right atrial size is normal. There is no evidence of atrial septal defect, but resolution does not allow assessment for a patent foramen ovale. Aortic Valve The aortic valve is trileaflet. There is no significant aortic regurgitation. Aortic stenosis is absent. Pulmonic Valve The pulmonary valve is not well seen, but the Doppler examination is normal without significant regurgitation or stenosis. Mitral Valve The mitral valve is normal. There is mild mitral regurgitation. There is no mitral valve stenosis. Tricuspid Valve The tricuspid valve is normal. Doppler findings do not suggest pulmonary hypertension. There is trace tricuspid regurgitation. There is no tricuspid stenosis. Great Vessels The aortic root and proximal ascending aorta are normal sized. Normal inferior vena cava diameter and respiratory variation suggests normal central venous pressure. Pericardium/Pleural There is no pericardial effusion. Left Ventricular Diastolic Function The LV diastolic function is normal.
[2018-02-27 08:41] LABS: ALBUMIN 2.2 gm/dl (3.4-5.0); CALCIUM 8.1 mg/dl (8.5-10.1); CREATININE 0.54 mg/dl (0.60-1.20); POTASSIUM 3.8 mmol/L (3.5-5.1); TOTAL PROTEIN 5.4 gm/dl (6.4-8.2)
--- NOTE | 2018-02-27 10:27 | Anesthesiology Progress Note ---
Anesthesia Post Op Note Date & Time Feb 27, 2018 at 10:26 Vital Signs Vital Signs Past 12 Hours Date Time Temp Pulse Resp B/P (MAP) Pulse Ox O2 Delivery O2 Flow Rate FiO2 02/27/18 08:00 Room Air 02/27/18 08:00 36.8 76 20 122/82 (95) 96 02/27/18 07:09 36.8 76 20 122/82 (95) 96 Room Air 02/27/18 03:35 36.8 65 23 108/61 (77) 97 Room Air 02/27/18 02:56 16 97 02/27/18 02:00 16 96 02/27/18 01:00 16 96 02/27/18 00:01 17 97 02/26/18 23:46 36.8 58 20 105/57 (73) 97 Room Air 02/26/18 23:00 22 97 Notes Mental Status: alert / awake / arousable, participated in evaluation Pt Amnestic to Procedure: Yes Nausea / Vomiting: adequately controlled Pain: adequately controlled Airway Patency, RR, SpO2: stable & adequate BP & HR: stable & adequate Hydration State: stable & adequate Neuraxial Anesthesia: sensory block resolved Anesthetic Complications: no major complications apparent
--- NOTE | 2018-02-27 11:20 | Cardiology Follow-Up ---
Subjective General Date of Service: Feb 27, 2018. Chief Complaint: follow up tachycardia Pt evaluation today including: conversation w/ patient, conversation w/ family , physical exam History of Present Illness The patient is a 32 year old female seen in follow up. Patient feeling well, sitting in chair. sleeping beside her in crib. at bedside. Telemetry: SR and SB, no additional tachycardia since 1400 on 02/26. Allergies Coded Allergies: No Known Allergies (Unverified , 02/22/17) Social History Smoking Status: Never Smoker Hx Tobacco Use In Past Year?: No Physical Exam Vital Signs Last Vital Signs Documentation Date Time Temp Pulse Resp B/P (MAP) Pulse Ox O2 Delivery O2 Flow Rate FiO2 02/27/18 08:00 Room Air 02/27/18 08:00 36.8 76 20 122/82 (95) 96 Physical Exam Head: normocephalic, atraumatic Neck: trachea midline Lungs: Auscultation: no wheezing, no rales/crackles, no rhonchi Cardiovascular: Heart Auscultation: RRR, no murmurs, no rubs, no gallops Extremities: no edema Neurologic: Gait & Station: pertinent finding (no focal deficits ) Assessment and Plan Assessment and Plan Last Resulted 02/27/18 05:54 Red Blood Count 3.84, Mean Corpuscular Volume 88.3, Mean Corpuscular Hemoglobin 27.6, Mean Corpuscular Hemoglobin Concent 31.3, Mean Platelet Volume 10.3, Neutrophils (%) (Auto) 77.9, Lymphocytes (%) (Auto) 13.3, Monocytes (%) (Auto) 7.5, Eosinophils (%) (Auto) 0.7, Basophils (%) (Auto) 0.1, Neutrophils # (Auto) 6.41, Lymphocytes # (Auto) 1.10, Monocytes # (Auto) 0.62, Eosinophils # (Auto) 0.06, Basophils # (Auto) 0.01 Last Resulted 02/27/18 05:53 EKG his am SB with sinus arrhythmia Impression: POD #1 s/p post operative asymptomatic accelerated junctional rhythm and sinus bradycardia , likely due to post operative high vagal tone TTecho today, normal biventricular function, mild MR, trace TR unchanged compared to 2017, no particular follow up necessary for mild valvular regurgitation Hgb and electrolytes stable Recommendations: Stable from cardiac standpoint for transfer back to Mother/ baby unit off of cardiac exercise physiologist. Pain medications to be continued post transfer as previously ordered by OB. Follow up with cardiology as an outpatient on an as needed basis, should pt have recurrence of HTN after delivery or subjective palpitations. Laboratory Results Last 24 Hours Test 02/26/18 20:33 02/27/18 05:53 02/27/18 05:54 Urine Color DK YELLOW Urine Appearance CLEAR Urine pH 6.5 Urine Specific [place] 1.021 Urine Protein TRACE Urine Glucose (UA) NEG Urine Ketones 2+ Urine Occult Blood NEG Urine Nitrite NEG Urine Bilirubin NEG Urine Urobilinogen NEG Urine Leukocyte Esterase TRACE Urine WBC (Auto) 5-10 /hpf Urine RBC (Auto) 0-4 /hpf Urine Hyaline Casts (Auto) 10-30 /lpf Urine Epithelial Cells (Auto) >30 /lpf Urine Bacteria (Auto) NEG Urine Renal Epithelial Cells /lpf Sodium Level 139 mmol/L Potassium Level 3.8 mmol/L Chloride Level 106 mmol/L Carbon Dioxide Level 27 mmol/L Anion Gap 6.0 mmol/L Blood Urea Nitrogen 4 mg/dl Creatinine 0.54 mg/dl Est Creatinine Clear Calc Drug Dose 175.7 ml/min Estimated GFR () 142.7 Estimated GFR (Non- 123.1 BUN/Creatinine Ratio 7.8 Random Glucose 85 mg/dl Calcium Level 8.1 mg/dl Total Bilirubin 0.4 mg/dl Aspartate Amino Transf (AST/SGOT) 26 U/L Alanine Aminotransferase (ALT/SGPT) 24 U/L Alkaline Phosphatase 99 U/L Total Protein 5.4 gm/dl Albumin 2.2 gm/dl Globulin 3.2 gm/dl Albumin/Globulin Ratio 0.7 White Blood Count 8.24 K/uL Red Blood Count 3.84 M/uL Hemoglobin 10.6 g/dL Hematocrit 33.9 % Mean Corpuscular Volume 88.3 fL Mean Corpuscular Hemoglobin 27.6 pg Mean Corpuscular Hemoglobin Concent 31.3 g/dl Platelet Count 158 K/uL Mean Platelet Volume 10.3 fL Neutrophils (%) (Auto) 77.9 % Lymphocytes (%) (Auto) 13.3 % Monocytes (%) (Auto) 7.5 % Eosinophils (%) (Auto) 0.7 % Basophils (%) (Auto) 0.1 % Neutrophils # (Auto) 6.41 K/uL Lymphocytes # (Auto) 1.10 K/uL Monocytes # (Auto) 0.62 K/uL Eosinophils # (Auto) 0.06 K/uL Basophils # (Auto) 0.01 K/uL RDW Standard Deviation 55.8 fL RDW Coefficient of Variation 17.3 % Immature Granulocyte % (Auto) 0.5 % Immature Granulocyte # (Auto) 0.04 K/uL
--- NOTE | 2018-02-27 15:33 | ECHOCARDIOGRAM REPORT ---
*NOTICE TO RECEIVING CONSTITUTION PARTY AGENCY This information is strictly Confidential and protected under [place] law. [place] law prohibits you from making any further disclosure of this information unless further disclosure is expressly permitted by the written consent of the person to whom it pertains or is authorized by law. A general authorization for the release of medical or other information is not sufficient for this purpose. Hospital accepts no responsibility if the information is made available to any other person, INCLUDING THE PATIENT. Interpretation Summary * Name: BAILEY REYNOLDS Study Date: 02/27/2018 06:30 AM BP: 122/82 mmHg * Patient Location: .2E\S\E207\S\1 HR: 58 * : 1985 (M/d/yyyy) Gender: Female Height: 68 in * Age: 32 yrs Ethnicity: [place] Weight: 188 lb * Ordering Physician: Efrem Chirinos * Referring Physician: Shine Ferreira * Performed By: Sabina Long RCS * * Reason For Study: TACHYCARDIA / PERIPARTUM * BSA: 2.0 m2 * -- Conclusions -- * The study was technically adequate for the referral indication. * Sinus rhythm at 60 bpm was present during the echocardiogram. * There is normal left ventricular wall thickness. * The left ventricular wall motion is normal. * Left ventricular systolic function is normal. * The LV Ejection Fraction = 60-65%. * The LV diastolic function is normal. * There is mild mitral regurgitation. * There is trace tricuspid regurgitation. Procedure Details * A complete two-dimensional transthoracic echocardiogram was performed (2D, M-mode, Doppler and color flow Doppler). Left Ventricle * The left ventricle is normal in size. * There is normal left ventricular wall thickness. * Left ventricular systolic function is normal. * Ejection Fraction = 60-65%. * The left ventricular wall motion is normal. Right Ventricle * The right ventricle is normal in size and function. * The right ventricular systolic function is normal as assessed by tricuspid annular plane systolic excursion (TAPSE) (normal >1.5 cm). Atria * The left atrial size is normal. * Right atrial size is normal. * There is no evidence of atrial septal defect, but resolution does not allow assessment for a patent foramen ovale. Mitral Valve * The mitral valve is normal. * There is no mitral valve stenosis. * There is mild mitral regurgitation. Tricuspid Valve * The tricuspid valve is normal. * There is no tricuspid stenosis. * Doppler findings do not suggest pulmonary hypertension. * There is trace tricuspid regurgitation. Aortic Valve * The aortic valve is trileaflet. * Aortic stenosis is absent. * There is no significant aortic regurgitation. Pulmonic Valve * The pulmonary valve is not well seen, but the Doppler examination is normal without significant regurgitation or stenosis. Great Vessels * The aortic root and proximal ascending aorta are normal sized. Pericardium/Pleural * There is no pericardial effusion. Great Vessels * Normal inferior vena cava diameter and respiratory variation suggests normal central venous pressure. Left Ventricular Diastolic Function * The LV diastolic function is normal. MMode 2D Measurements and Calculations IVSd 1.3 cm IVSs 1.5 cm LVIDd 4.7 cm LVIDs 3.3 cm LVPWd 0.93 cm LVPWs 1.3 cm IVS/LVPW 1.5 FS 29.4 % EDV(Teich) 102.3 ml ESV(Teich) 44.7 ml EF(Teich) 56.3 % EDV(cubed) 103.8 ml ESV(cubed) 36.5 ml EF(cubed) 64.8 % % IVS thick 8.3 % % LVPW thick 38.3 % LV mass(C)d 196.7 grams LV mass(C)dI 98.8 grams/m\S\2 LV mass(C)s 155.5 grams LV mass(C)sI 78.1 grams/m\S\2 SV(Teich) 57.7 ml SI(Teich) 29.0 ml/m\S\2 SV(cubed) 67.3 ml SI(cubed) 33.8 ml/m\S\2 Ao root diam 2.9 cm Ao root area 6.6 cm\S\2 ACS 2.0 cm LA dimension 3.6 cm LA/Ao 1.2 LVOT diam 1.8 cm LVOT area 2.5 cm\S\2 LVAd ap4 33.9 cm\S\2 LVLd ap4 7.8 cm EDV(MOD-sp4) 120.8 ml EDV(sp4-el) 125.3 ml LVAs ap4 20.2 cm\S\2 LVLs ap4 6.6 cm ESV(MOD-sp4) 50.8 ml ESV(sp4-el) 52.4 ml EF(MOD-sp4) 57.9 % EF(sp4-el) 58.2 % LVAd ap2 39.5 cm\S\2 LVLd ap2 8.3 cm EDV(MOD-sp2) 156.1 ml EDV(sp2-el) 159.3 ml LVAs ap2 23.6 cm\S\2 LVLs ap2 7.0 cm ESV(MOD-sp2) 65.1 ml ESV(sp2-el) 67.8 ml EF(MOD-sp2) 58.3 % EF(sp2-el) 57.5 % LVLd %diff 6.7 % EDV(MOD-bp) 136.4 ml LVLs %diff 5.9 % ESV(MOD-bp) 59.4 ml EF(MOD-bp) 56.5 % SV(MOD-sp4) 70.0 ml SI(MOD-sp4) 35.2 ml/m\S\2 SV(MOD-sp2) 91.0 ml SI(MOD-sp2) 45.7 ml/m\S\2 SV(MOD-bp) 77.0 ml SI(MOD-bp) 38.7 ml/m\S\2 SV(sp4-el) 72.9 ml SI(sp4-el) 36.6 ml/m\S\2 SV(sp2-el) 91.6 ml SI(sp2-el) 46.0 ml/m\S\2 Doppler Measurements and Calculations MV E max negrita 135.3 cm/sec MV A max negrita 51.8 cm/sec MV E/A 2.6 MV P1/2t max negrita 131.0 cm/sec MV P1/2t 85.2 msec MVA(P1/2t) 2.6 cm\S\2 MV dec slope 450.1 cm/sec\S\2 MV dec time 0.17 sec Ao V2 max 132.9 cm/sec Ao max PG 7.1 mmHg Ao max PG (full) -1.35 mmHg PATRICIA(V,A) 2.8 cm\S\2 PATRICIA(V,D) 2.8 cm\S\2 LV V1 max PG 8.4 mmHg LV V1 max 145.1 cm/sec MR max negrita 481.5 cm/sec MR max PG 93.0 mmHg TR max negrita 292.6 cm/sec
[2018-02-27] MEDS ORDERED: BISACODYL 5 MG TABEC PO ONE (21:00)
[2018-02-28] VITALS (7 sets, daily range): BP systolic 104–136; BP diastolic 66–78; PULSE 55–75; TEMP 36.4–36.8; O2SAT 95–99
[2018-02-28] MEDS: IBUPROFEN 600 MG TAB PO PRN ×5 (02:21→19:56)
[2018-02-28] MEDS: OXYCODONE/ACETAMINOPHEN 5-325 TAB PO PRN ×5 (02:22→19:56)
--- NOTE | 2018-02-28 07:07 | Progress Note ---
Subjective Feb 28, 2018. Subjective conversation w/ patient Ambulation: ambulating normally Voiding: no voiding problems Passing Gas: Yes Diet Tolerance: Regular Diet Feeding Type: Breast Feeding Review of Systems Constitutional: + fever Objective Vital Signs Date Time Temp Pulse Resp B/P (MAP) Pulse Ox O2 Delivery O2 Flow Rate FiO2 02/28/18 04:00 36.4 62 16 116/67 (83) 95 Room Air 02/28/18 00:40 36.6 62 18 104/68 (80) 98 Room Air 02/27/18 20:15 36.5 64 20 111/69 (83) 97 Room Air 02/27/18 20:15 97 Room Air 02/27/18 15:50 36.4 60 18 121/80 (94) Room Air 02/27/18 15:50 Room Air 02/27/18 12:25 98 Room Air 02/27/18 12:25 36.5 58 20 117/76 (90) 98 Room Air 02/27/18 08:00 Room Air 02/27/18 08:00 36.8 76 20 122/82 (95) 96 02/27/18 07:09 36.8 76 20 122/82 (95) 96 Room Air Physical Exam General Appearance: WELL-APPEARING Respiratory/Chest: lungs clear Abdomen: non tender Fundus: Firm, Non-Tender Incision Description: Clean, Dry & Intact Extremities: no pedal edema, no calf tenderness Assessment and Plan Post-Op Day#: 2
[2018-02-28] MEDS: PRENATAL VITAMIN TAB PO SCH (08:19)
[2018-02-28] MEDS: FERROUS SULFATE 325 MG TAB PO SCH (08:20)
[2018-02-28] MEDS: DOCUSATE SODIUM 100 MG CAP PO SCH ×2 (08:20→19:55)
[2018-02-28] MEDS: SIMETHICONE 80 MG CHEW PO SCH ×4 (08:20→19:55)
[2018-02-28] MEDS ORDERED: BISACODYL 10 MG SUPP PR PRN (12:00)
[2018-03-01] MEDS: IBUPROFEN 600 MG TAB PO PRN ×3 (00:38→12:05)
[2018-03-01] MEDS: OXYCODONE/ACETAMINOPHEN 5-325 TAB PO PRN ×3 (00:38→12:05)
[2018-03-01 03:25] VITALS: BP 124/74; PULSE 48; TEMP 36.4; O2SAT 99
[2018-03-01 03:40] VITALS: PULSE 48
[2018-03-01 08:00] VITALS: BP 127/73; PULSE 73; TEMP 36.6
[2018-03-01] MEDS: PRENATAL VITAMIN TAB PO SCH (08:08)
[2018-03-01] MEDS: SIMETHICONE 80 MG CHEW PO SCH ×2 (08:08→12:04)
[2018-03-01] MEDS: DOCUSATE SODIUM 100 MG CAP PO SCH (08:08)
[2018-03-01] MEDS: FERROUS SULFATE 325 MG TAB PO SCH (08:09)
--- NOTE | 2018-03-01 10:03 | Progress Note ---
Subjective Mar 01, 2018. Subjective conversation w/ patient Ambulation: ambulating normally Voiding: no voiding problems Passing Gas: Yes Diet Tolerance: Regular Diet Lochia: Small Feeding Type: Breast Feeding Review of Systems Constitutional: + fever Objective Vital Signs Date Time Temp Pulse Resp B/P (MAP) Pulse Ox O2 Delivery O2 Flow Rate FiO2 03/01/18 08:00 36.6 73 20 127/73 (91) 03/01/18 03:40 48 03/01/18 03:25 36.4 48 16 124/74 (91) 99 Room Air 02/28/18 23:15 97 Room Air 02/28/18 23:15 36.4 64 18 110/68 (82) 97 Room Air 02/28/18 20:00 36.5 55 16 114/66 (82) 98 Room Air 02/28/18 16:10 36.5 75 16 136/78 (97) 99 Room Air 02/28/18 16:10 99 Room Air 02/28/18 12:30 36.4 62 18 127/77 (94) 98 Room Air Physical Exam General Appearance: WELL-APPEARING Abdomen: non tender Fundus: Firm, Non-Tender Incision Description: Clean, Dry & Intact Extremities: no pedal edema, no calf tenderness Assessment and Plan Post-Op Day#: 3
--- NOTE | 2018-03-01 10:05 | Discharge Instructions ---
Discharge Instructions Date of Service Mar 01, 2018. Admission Reason for Admission: Previous Section, Desires Sterilization Discharge Discharge Diagnosis / Problem: bradtcardia Discharge Goals Goal(s): Routine recovery after Activity Recommendations Activity Limitations: as noted below ACTIVITY RECOMMENDATIONS: * Gradual return to full activity over the next 2-3 weeks. * No lifting - nothing heavier than baby over the next 2-3 weeks. * Do not engage in vigorous exercise, sexual activity or sports for 6 weeks. * Do not drive or operate any motorized equipment for 14 days. * You may shower/bathe daily. DIET: Resume Previous Diet If Breast-feeding: * Increase caloric intake by 500 calories, eat 3 well balanced meals, 2 high protein snacks a day and drink 6-8 8oz. glasses of fluid per day. BREAST CARE: If you are not breast feeding: * Wear a supportive bra 24 hours a day for one to two weeks. * Avoid stimulating your breasts and nipples as much as possible during the first few weeks after delivery. * When taking a shower, have the warm water hit your back, not breasts. * When your breasts feel full, apply ice packs. Usually three to four times a day helps ease the discomfort. * Take a mild pain medication (Tylenol / Motrin) when you are uncomfortable. If breast feeding: * Use breast milk to lubricate nipples. Lansinoh cream may be used for sore nipples. You do not need to remove cream prior to breast feeding. If using a different brand of cream, check the label for directions regarding removal of cream prior to nursing. * Wear a supportive bra. * If having problems with breasts or breast feeding, call a [employer] operations consultant or your health care provider. VITAMINS: * One tablet daily. Continue taking while or until you have your check up in 6 weeks. SPECIAL CARE INSTRUCTIONS: * Vaginal rest (no tampons, douching, intercourse) until after doctor's visit. * control as discussed with doctor. * Verbalizes understanding of car seat law as reviewed with patient by nursing. * Car Seat hand-out given and reviewed with patient by nursing. * Shaken baby information reviewed with patient by nursing. Call you doctor if: * Heavy bleeding (saturating a pad an hour) or passing clots the size of your fist. Bleeding has a foul smelling odor. * A fever greater than 100.4 degrees F (38 degrees C) on two occasions four hours apart and/or chills. * Unusual pain in the pelvic or vaginal areas. Pain should improve each day . * Call the doctor for any increased redness, drainage or swelling around the incision and any pain unrelieved by prescribed pain medication. * Signs and symptoms of phlebitis(possible blood clots forming in the veins): leg pain, warm, red or swollen area on leg. * "Baby Blues" lasting longer than two weeks. If you have any questions or concerns, call your health care practitioner at [phone]. FOLLOW-UP VISIT: Follow-up visit for examination in 6 weeks. Incision check (staple removal) in 1 week. Please call office at [phone] if not already scheduled. . Current Hospital Diet ACTIVITY RECOMMENDATIONS: * Gradual return to full activity over the next 2-3 weeks. * No lifting - nothing heavier than baby over the next 2-3 weeks. * Do not engage in vigorous exercise, sexual activity or sports until cleared by your physician. * Do not drive or operate any motorized equipment until cleared by your physician. * You may shower/bathe daily. DIET: Resume Previous Diet If Breast-feeding: * Increase caloric intake by 500 calories, eat 3 well balanced meals, 2 high protein snacks a day and drink 6-8 8oz. glasses of fluid per day. BREAST CARE: If you are not breast feeding: * Wear a supportive bra 24 hours a day for one to two weeks. * Avoid stimulating your breasts and nipples as much as possible during the first few weeks after delivery. * When taking a shower, have the warm water hit your back, not breasts. * When your breasts feel full, apply ice packs. Usually three to four times a day helps ease the discomfort. * Take a mild pain medication (Tylenol / Motrin) when you are uncomfortable. If breast feeding: * Use breast milk to lubricate nipples. Lansinoh cream may be used for sore nipples. You do not need to remove cream prior to breast feeding. If using a different brand of cream, check the label for directions regarding removal of cream prior to nursing. * Wear a supportive bra. * If having problems with breasts or breast feeding, call a [employer] operations consultant or your health care provider. OVER THE COUNTER MEDICATION: * For discomfort or pain, you may use Acetaminophen (Tylenol), Ibuprofen (Advil ), or Naproxen (Aleve) following the package directions. * For constipation you may use Colace following the package directions. SPECIAL CARE INSTRUCTIONS: * Vaginal rest (no tampons, douching, intercourse) until after doctor 's visit. * control as discussed with doctor. * Verbalizes understanding of car seat law as reviewed with patient nursing. * Car Seat hand-out given and reviewed with patient by nursing. * Shaken baby information reviewed with patient by nursing. Call you doctor if: * Temperature greater than or equal to 100.4 degrees F or 38.0 degrees C. Take your temperature twice daily for a week. * Bleeding becomes heavier than the heaviest part of your period - saturating a sanitary pad within an hour. * Passing large clots. * Bleeding has a foul smelling odor. * Signs and symptoms of phlebitis: leg pain, warm, red or swollen area on leg. * "Baby Blues" lasting longer than two weeks. ++ If you have had a and incision has increased pain, redness, swelling, presence of any drainage, or if the incision starts to open up. If you have any questions or concerns, call your health care practitioner at [phone]. FOLLOW-UP VISIT: Please call the office at to schedule a 6 week examination. Patient's current hospital diet: Regular OB Diet Discharge Diet Recommended Diet: Regular Diet Procedures Procedures Performed: 1. Repeat low transverse section. 2. Bilateral tubal ligation. Pending Studies Studies pending at discharge: no Medical Emergencies . Who to Call and When: Medical Emergencies: If at any time you feel your situation is an emergency, please call 911 immediately. . Non-Emergent Contact Non-Emergency issues call your: Alcohol Still Operator Call Non-Emergent contact if: temperature is above 100.5 . . "Provider Documentation" section prepared by Shine Ferreira. .
--- NOTE | 2018-03-01 10:56 | DISCHARGE SUMMARY ---
Mrs. Barr was admitted at 39 weeks 1 day gestation for repeat low segment section, bilateral partial salpingectomy. She had developed some [id number] hypertension later in her course in her and she had been placed on labetalol 100 mg 3 times a day. On day of admission she was taken to the OR where under spinal anesthesia, we did a repeat low segment section and delivered a live macrosomic along with bilateral partial salpingectomy. Due to her abnormal heart rate and rhythm, she was placed in the cardiac unit for 24 hours to monitor her heart rate. It has been a day down there and then was transferred back up to maternity where she remained afebrile. Her bowel sounds returned on about the second postoperative day. At the time of discharge, she was ambulating well, eating well, passing gas. Her pain was managed on a combination of Percocet and Motrin. Preoperative hemoglobin was 11.3, hematocrit 36.0. Postoperatively was 10.6, hematocrit 33.9. She was instructed to call the office for removal of the raj and to call us if she had a temperature over 100 or any heavy bleeding.
[2018-03-01 14:37] VITALS: BP_DIAS 73; PULSE 73; TEMP 36.6
== END 2018-03-01 14:42 | disposition home or self-care (01) | DRG 766 ==
LOC: C.LD 07:16 → EDBEDREQ 12:05 → ENRESERV 12:33 → EDSTATUS 12:36 → C.2E 13:25 → C.OBG 02-27 11:10 → ENRESERV 02-27 11:18
PROVIDERS: ADMIT Obstetrics & Gynecology; ATTEND Obstetrics & Gynecology
PROC: 0UT90ZZ Resection of Uterus, Open Approach (ICD-10-PCS; principal; 2018-02-26 09:00)
PROC: 0UT20ZZ Resection of Bilateral Ovaries, Open Approach (ICD-10-PCS; principal; 2018-02-26 09:00)
PROC: 10D00Z1 Extraction of Products of Conception, Low, Open Approach (ICD-10-PCS; principal; 2018-02-26 09:00)
PROC: 0UT70ZZ Resection of Bilateral Fallopian Tubes, Open Approach (ICD-10-PCS; principal; 2018-02-26 09:00)
DX: O34.219 Maternal care for unspecified type scar from previous cesarean delivery (principal); Z30.2 Encounter for sterilization; O36.63X0 Maternal care for excessive fetal growth, third trimester, not applicable or unspecified; Z37.0 Single live birth; Z3A.39 39 weeks gestation of pregnancy